=== PATIENT | female | born 1950 | race African-American/Black ===

== ENCOUNTER 2018-07-09 11:25 | Emergency (ER) | payer MEDICARE, OTHER ==
[~2018-07-09] VITALS: Ht 152.4 cm; Wt 64.4 kg
[~2018-07-09 11:25] MED LIST: NAPR500T8 PO; TRAM-48 PO
[2018-07-09 11:42] VITALS: BP 127/60
--- NOTE | 2018-07-09 12:41 | RAD ---
EXAM: Left index, 3 views; left knee, 3 views. HISTORY: Pain. Fall. COMPARISON: 10/17/2015 FINDINGS: Left index finger: 3 views left index 0 obtained. No displaced fracture is seen. There is no radiodense foreign body. There is widening of the scapholunate joint space likely due to ligamentous injury. There is a prominent degenerative subchondral cyst within the distal radial metaphysis. Left knee: 3 views left knee are obtained. There is severe irregularity of the lateral compartment articular surface with near complete loss of the joint space, bony remodeling with depression of the lateral tibial plateau, sclerosis and subchondral cyst formation and surrounding bone fragments. There is associated genu valgus. There is mild to moderate medial compartment and mild patellofemoral compartment spurring. There is enthesopathy along the superior patella. There is a moderate to large joint effusion. There is callus formation surrounding a minimally displaced proximal fibular diaphyseal fracture. IMPRESSION: 1. No acute osseous finding. 2. Severe left knee lateral compartment joint space narrowing with irregular area of the articular surface, depression of the lateral tibial plateau, sclerosis, subchondral cyst formation and surrounding bone fragments. This is greater than expected for a degenerative etiology. The possibility of degenerative change superimposed on a chronic fracture or underlying chronic infection is not excluded. This is new compared to the study dated 10/17/2015. 3. Callus formation surrounding a healing proximal left fibular diaphyseal fracture. 4. Scapholunate joint space widening due to ligamentous injury. There is also degenerative change involving the distal radial metaphysis. Electronically signed by: Daniella Peña MD (07/09/2018 12:36 PM) [facility]
[2018-07-09] MEDS ORDERED: METH4TAB2 PO (13:40)
[2018-07-09] MEDS ORDERED: DICL100G18 TP (13:40)
[2018-07-09] MEDS ORDERED: HYDR-3164 PO (13:40)
--- NOTE | 2018-07-09 13:41 | PHYS DOC ---
Past Medical History Past Medical History: Arthritis, COPD, Hypertension Past Surgical History: Tubal ligation Additional Past Surgical Histo: RIGHT BREAST SX, CATARACTS SX Additional Information: 1 CIG/DAY Alcohol Use: None Drug Use: None Adult General Chief Complaint Chief Complaint: MECHANICAL FALL [facility] HPI Patient is a 68 year old female with history of hypertension, arthritis, COPD, who presents today complaining of 10 out of 10 left index finger and left knee pain that began 2 weeks ago after she fell. Patient states she was trying to put something in the trash when she lost her balance and fell landing on her left knee. Patient denies any loss of consciousness, denies hitting her head on the ground. Patient is in the ED with the family member who states patient is currently not able to ambulate and put weight on the left lower extremity. Review of Systems Review of Systems Constitutional: Denies fever or chills [] Eyes: Denies change in visual acuity, redness, or eye pain [] HENT: Denies nasal congestion or sore throat [] Respiratory: Denies cough or shortness of breath [] Cardiovascular: No additional information not addressed in HPI [] GI: Denies abdominal pain, nausea, vomiting, bloody stools or diarrhea [] : Denies dysuria or hematuria [] Musculoskeletal: Reports left index finger pain and left knee pain Integument: Denies rash or skin lesions [] Neurologic: Denies headache, focal weakness or sensory changes [] All other systems were reviewed and found to be within normal limits, except as documented in this note. Allergies Allergies Allergies Coded Allergies Type Severity Reaction Last Updated Verified No Known Drug Allergies 10/17/15 No Physical Exam Physical Exam Constitutional: Well developed, well nourished, no acute distress, non-toxic appearance. [] HENT: Normocephalic, atraumatic, bilateral external ears normal, oropharynx moist, no oral exudates, nose normal. [] Eyes: PERRLA, EOMI, conjunctiva normal, no discharge. [] Neck: Normal range of motion, no tenderness, supple, no stridor. [] Cardiovascular:Heart rate regular rhythm, no murmur [] Lungs & Thorax: Bilateral breath sounds clear to auscultation [] Abdomen: Bowel sounds normal, soft, no tenderness, no masses, no pulsatile masses. [] Skin: Warm, dry, no erythema, no rash. [] Back: No tenderness, no CVA tenderness. [] Extremities: Left index finger with no obvious deformity. Full range of motion to the left index finger, adequate radius sensation to the left index finger. + 2 left radial pulse. Left knee with mild to moderate swelling. Tenderness diffusely throughout the knee. Limited range of motion to the knee due to pain. +2 left pedal pulse. Cap refill less than 2 seconds the left lower extremity. Neurologic: Alert and oriented X 3, normal motor function, normal sensory function, no focal deficits noted. [] Psychologic: Affect normal, judgement normal, mood normal. [] Current Patient Data Vital Signs Vital Signs Date Time Temp Pulse Resp B/P (MAP) Pulse Ox O2 Delivery O2 Flow Rate FiO2 07/09/18 11:42 97.8 74 18 127/60 (82) 98 Room Air 97.8 EKG EKG [] Radiology/Procedures Radiology/Procedures []PROCEDURE: FINGER(S) LEFT EXAM: Left index, 3 views; left knee, 3 views. HISTORY: Pain. Fall. COMPARISON: 10/17/2015 FINDINGS: Left index finger: 3 views left index 0 obtained. No displaced fracture is seen. There is no radiodense foreign body. There is widening of the scapholunate joint space likely due to ligamentous injury. There is a prominent degenerative subchondral cyst within the distal radial metaphysis. Left knee: 3 views left knee are obtained. There is severe irregularity of the lateral compartment articular surface with near complete loss of the joint space, bony remodeling with depression of the lateral tibial plateau, sclerosis and subchondral cyst formation and surrounding bone fragments. There is associated genu valgus. There is mild to moderate medial compartment and mild patellofemoral compartment spurring. There is enthesopathy along the superior patella. There is a moderate to large joint effusion. There is callus formation surrounding a minimally displaced proximal fibular diaphyseal fracture. IMPRESSION: 1. No acute osseous finding. 2. Severe left knee lateral compartment joint space narrowing with irregular area of the articular surface, depression of the lateral tibial plateau, sclerosis, subchondral cyst formation and surrounding bone fragments. This is greater than expected for a degenerative etiology. The possibility of degenerative change superimposed on a chronic fracture or underlying chronic infection is not excluded. This is new compared to the study dated 10/17/2015. 3. Callus formation surrounding a healing proximal left fibular diaphyseal fracture. 4. Scapholunate joint space widening due to ligamentous injury. There is also degenerative change involving the distal radial metaphysis. Electronically signed by: Lia Peña MD (07/09/2018 12:36 PM) [facility] DICTATED and SIGNED BY: LIA PEÑA MD DATE: 07/09/18 1231 Course & Med Decision Making Course & Med Decision Making Pertinent Labs and Imaging studies reviewed. (See chart for details) This is a 68-year-old female patient presenting to the ED today with left index finger pain and left knee pain that began 2 weeks ago after she fell. No loss of consciousness. Results of the left knee x-rays and left index finger 1. No acute osseous finding. 2. Severe left knee lateral compartment joint space narrowing with irregular area of the articular surface, depression of the lateral tibial plateau, sclerosis, subchondral cyst formation and surrounding bone fragments. This is greater than expected for a degenerative etiology. The possibility of degenerative change superimposed on a chronic fracture or underlying chronic infection is not excluded. This is new compared to the study dated 10/17/2015. 3. Callus formation surrounding a healing proximal left fibular diaphyseal fracture. 4. Scapholunate joint space widening due to ligamentous injury. There is also degenerative change involving the distal radial metaphysis. Finger splint provided in the ED. Splint applied by the ED RN, pre-and post neurovascular exam is intact after splint application. Spoke to patient and family member. Offered this patient admission considering her injuries as well as inability to bear weight on the left lower extremity. Patient resides at home alone. She states she has a caregiver who comes for 1 hour every day. Patient decided to sign out AMA. She states she cannot be admitted. I provided the an orthopedic doctor for follow-up as an outpatient. Abdias bandage applied to the left knee by the ED RN, pre-application and post- application neurovascular exam is intact. Given prescription for Voltaren, Medrol Dosepak and 10 tablets of [place]. Vitals in the ED temperature 97.8 heart rate 74 blood pressure 127/60 respiration 18 room air, O2 sats 98%. Physical exam of the left knee there is no redness, there swelling Dragon Disclaimer Dragon Disclaimer This electronic medical record was generated, in whole or in part, using a voice recognition dictation system. Departure Departure Impression: Primary Impression: Knee effusion Additional Impressions: Knee pain Sprain of index finger Fall from standing Left fibular fracture Disposition: 01 HOME, SELF-CARE Condition: STABLE Referrals: UNKNOWN PCP NAME (PCP) SHANNAN CEJA II, MD follow up in 1 day Patient Instructions: Finger Sprain, [id number], Knee Pain, [id number] Additional Instructions: You were evaluated in the emergency room for left index finger pain and left knee pain after an injury. We highly recommend you follow-up with the orthopedic doctor provided as soon as possible. Your Scripts Methylprednisolone (MEDROL) 4 Mg Tab.ds.pk 1 PKG PO UD, #1 PKG Prov: LIBORIO TIWARI PROFILE MILL OPERATOR T[employer] CONTR[employer] 07/09/18 Hydrocodone/Apap 5-325 (NORCO 5-325 TABLET) 1 Each Tablet 1 TAB PO Q8HRS PRN for PAIN, #10 TAB Prov: LIBORIO TIWARI PROFILE MILL OPERATOR T[employer] 07/09/18 Diclofenac Sodium (VOLTAREN) 100 Gm Gel..gram. 1 GM TP QID, #100 GM 2 Refills Prov: LIBORIO TIWARI PROFILE MILL OPERATOR T[employer] 07/09/18 Problem Qualifiers Primary Impression: Knee effusion Laterality: left Qualified Codes: M25.462 - Effusion, left knee Additional Impressions: Knee pain Chronicity: acute Laterality: left Qualified Codes: M25.562 - Pain in left knee Sprain of index finger Encounter type: initial encounter Sprain of finger site: interphalangeal joint Laterality: left Qualified Codes: S63.631A - Sprain of interphalangeal joint of left index finger, initial encounter Fall from standing Encounter type: initial encounter Qualified Codes: W19.XXXA - Unspecified fall, initial encounter Left fibular fracture Encounter type: initial encounter Fibula location: shaft Fracture type: closed Fracture morphology: other fracture Qualified Codes: S82.492A - Other fracture of shaft of left fibula, initial encounter for closed fracture LIBORIO TIWARI PROFILE M[employer] OPERATOR [employer] Jul 09, 2018 13:41
== END 2018-07-09 14:04 | disposition home or self-care (01) ==
LOC: ER 11:25
DX: S82.492A Other fracture of shaft of left fibula, initial encounter for closed fracture (principal); S63.631A Sprain of interphalangeal joint of left index finger, initial encounter; M25.462 Effusion, left knee; I10 Essential (primary) hypertension; J44.9 Chronic obstructive pulmonary disease, unspecified; Z98.51 Tubal ligation status; F17.210 Nicotine dependence, cigarettes, uncomplicated; W18.39XA Other fall on same level, initial encounter; Y93.89 Activity, other specified; Y92.89 Other specified places as the place of occurrence of the external cause; Y99.8 Other external cause status
CPT/HCPCS: 29130; 73140; 73562; 99284-25

== ENCOUNTER 2018-08-25 17:23 | Inpatient (IN) | payer MEDICARE, OTHER ==
[~2018-08-25] VITALS: Ht 149.9 cm; Wt 63.6 kg
[~2018-08-25 17:23] MED LIST changes: +DICL100G18 TP; +HYDR-3164 PO; +METH4TAB2 PO
[2018-08-25] MEDS ORDERED: IV NORMAL SALINE 1000ML BAG 1,000 ML IV ONE ×3 (18:00→23:30)
--- NOTE | 2018-08-25 18:19 | PHYS DOC ---
Past Medical History Past Medical History: Arthritis, COPD, Diabetes-Type II, Hypertension Past Surgical History: Tubal ligation Additional Past Surgical Histo: RIGHT BREAST SX, CATARACTS SX Alcohol Use: None Drug Use: Opiates Adult General Chief Complaint Chief Complaint: KNEE SWELLING HPI HPI 68-year-old female presents to ER via EMS from her residence after her field human resources manager had concerns with patient's mental status. On arrival patient has moments of clarity and then her words become slurred. Patient has bottles of hydrocodone which EMS reported she takes for chronic pain which were filled at the end of July and she has less pills left then what she should if she was taking as prescribed. Patient has pinpoint pupils. Patient is maintaining her airway and only complaint she has has left knee pain. EMS reported patient had fallen however patient has no recollection of falls. During exam pt will be talking and then drifts into sleep- she wakes easily to voice command and will provide answers to some questions. At times she is confused with responses. She denies head/neck/back pain. She denies CP or feeling SOA. Review of Systems Review of Systems With pt's current medical condition and level of consciousness difficult to obtain ROS- she does arouse to voice command but at times during exam providing inapprop. responses to questions. Uncertain of accuracy of info pt is providing. All other systems were reviewed and found to be within normal limits, except as documented in this note. Current Medications Current Medications Current Medications Medications (Trade) Dose Ordered Sig/Yuridia Start Time Stop Time Status Last Admin Dose Admin Sodium Chloride 1,000 ml @ 1,000 mls/hr 1X ONCE 08/25/18 18:00 08/25/18 18:59 DC 08/25/18 18:44 1,000 MLS/HR Allergies Allergies Allergies Coded Allergies Type Severity Reaction Last Updated Verified No Known Drug Allergies 10/17/15 No Physical Exam Physical Exam Constitutional: Well developed, well nourished, no acute distress, non-toxic appearance. Drowsy during exam and would doze off during discussion- she would wake easily to voice command HENT: Normocephalic, atraumatic, bilateral ears normal, mucous membranes pale/ dry, no oral exudates/injuries, nose normal. [] Eyes: 1mm PERRLA- sluggish, no nystagmus, conjunctiva normal, no discharge. [] Neck: Normal range of motion, no tenderness- no palp. deformity, supple, no stridor. Trachea midline Cardiovascular: Tachycardic heart rate regular rhythm, no murmur [] Lungs & Thorax: Bilateral breath sounds clear to auscultation- diminished in bases. Resp. equal/nonlabored at times during exam resp. slowed- O2 was applied via NC and during exam pt maintained O2 sat of 97-99% on 2L Abdomen: Bowel sounds normal, soft, no tenderness, no masses, no pulsatile masses. [] Skin: Warm, dry, no erythema, no rash. [] Back: No tenderness-no palp. deformity midline spine. No visible injury on back. Pt is able to reposition self on cart, no CVA tenderness. [] Extremities: Pelvis stable/nontender. No tenderness in lateral bilat. hips. Tender on palp. lt anterior knee w/swelling and deformity on exam- no ecchymosis /wounds. Decreased ROM of lt knee. 2+ bilat. dorsalis pedis/posterior tibial. No cyanosis, no clubbing, Neurologic: Alert and oriented X 2, normal motor function- slow purposeful movements on command, normal sensory function, no focal deficits noted. Speech is clear at times and then when pt is dozing off she does have slurred incomprehensible speech. Psychologic: No restlessness or agitation. Current Patient Data Vital Signs Vital Signs Date Time Temp Pulse Resp B/P (MAP) Pulse Ox O2 Delivery O2 Flow Rate FiO2 08/25/18 17:31 98.3 124 20 138/76 (96) 96 Room Air 98.3 Lab Values Laboratory Tests Test 08/25/18 17:31 Glucose (Fingerstick) 92 mg/dL (70-99) EKG EKG EKG obtained 08/25/18 at 1734 Interpreted by ER physician SVT Rate 129 No STEMI Radiology/Procedures Radiology/Procedures PROCEDURE: CT HEAD AND CERVICAL SPINE WO CT HEAD AND CERVICAL SPINE WO Clinical indications: FALL, HEAD AND NECK INJURY, PRIOR CT HEAD SENT NONCONTRAST HEAD CT COMPARISON: November 22, 2007. Technique: Noncontrast axial cross sectional scanning of the head was performed. PQRS compliance Statement One or more of the following individualized dose reduction techniques were utilized for this study: 1. Automated exposure control 2. Adjustment of the mA and/or kV according to patient size 3. Use of iterative reconstruction technique Findings: No acute intracranial hemorrhage or midline shift or mass-effect or hydrocephalus or extra-axial fluid collection is seen. Bilateral periventricular chronic small vessel ischemic disease is evident along with lacunar infarcts of the basal ganglia bilaterally. No skull fracture or pneumocephalus is seen. No opacification of the mastoid sinuses or the paranasal sinuses is seen. The maxillary sinuses are not completely seen in this study. Impression: No acute intracranial abnormality is seen. CERVICAL SPINE CT WITHOUT CONTRAST TECHNIQUE: Noncontrast helical CT scanning of the cervical spine was performed. Multiplanar 2-D reconstructions were generated. FINDINGS: No acute fracture or discitis or lytic process is evident. No perching of facet joints is seen. The odontoid process is intact. IMPRESSION: No acute fracture. Electronically signed by: Beck Rodriguez MD (08/25/2018 7:23 PM) [facility] DICTATED and SIGNED BY: BECK RODRIGUEZ MD DATE: 08/25/18 1923 PROCEDURE: HIP LEFT 2V WITH PELVIS Pelvis with left hip, 3 views, 08/25/2018: HISTORY: Fall, hip pain No fracture or dislocation is identified. The hip joint spaces are fairly well preserved with only minimal marginal spurring. Aortoiliac and femoral arterial calcifications are present. IMPRESSION: No acute bony abnormality is detected. Electronically signed by: Matias Cevallos MD (08/26/2018 7:48 AM) [facility] DICTATED and SIGNED BY: MATIAS CEVALLOS MD DATE: 08/26/18 0748 PROCEDURE: KNEE LEFT 3V Indication:ER PATIENT.TRAUMA FALL PAIN IN THE LEFT KNEE. NO PRIORS TECHNIQUE: 3 views of the left knee COMPARISON:08/05/2018 FINDINGS: Severe tricompartmental osteoarthritis. Small suprapatellar effusion. Subacute fracture of the proximal diaphysis of the fibula with evidence of bridging callus formation. No new acute fracture or dislocation. IMPRESSION: As above. Electronically signed by: Fransico Gaspar DO (08/25/2018 11:58 PM) [facility] DICTATED and SIGNED BY: FRANSICO GASPAR DO DATE: 08/25/18 2734 Course & Med Decision Making Course & Med Decision Making Pertinent Labs and Imaging studies reviewed. (See chart for details) Patient was brought to the ER for decreased LOC and difficulty breathing. On arrival to the ER patient was lethargic-she would arouse to verbal command and at times was answering questions appropriately. It was uncertain to exactly events leading up to transport to ER. With patient's level of consciousness during exam head and C-spine CT was ordered as EMS had reported possible fall with patient having complaints of left lower extremity pain. Head and C-spine CT were negative for acute findings of fractures. With possible fall pelvis and left hip and knee imaging was done as with any palpation of left knee or movement of left lower extremity patient would moan stating she was having pain- chronic findings noted on those images. Lt knee xray report of "Subacute fracture of the proximal diaphysis of the fibula with evidence of bridging callus formation. No new acute fracture or dislocation". She remained PMS intact in all extremities while in the ER. As results of tests were being resulted family members arrived to bedside- patient's nieces arrived and was able to provide further insight into patient's case. They report patient had previous left leg fractures which she had been seeing orthopedics for- they report pt's pain meds had been being handled by care takers without pt having full access to them. However in recent weeks that had changed and care takers had started leaving pain meds with pt. Pt's niece reports pt has a "mental" issue and feels maybe pt hasn't been remembering if she took her meds or possibly that with ongoing pain she has been taking meds not as Rx'd. With patient's ongoing complaints of pain with any palpation of left knee or movement of left lower extremity will have knee immobilizer placed to support. Patient had EKG with no acute ST elevation or STEMI and troponin was <0.017- UA was negative for infection did have trace ketones. Patient's renal functions were elevated with be with Cr at 1.9- patient's CK total was 858. Patient did receive IV fluid bolus while in the ER. Patient's decreased just numbness and ongoing complaints of pain discussed admission with patient's niece and they are agreeable with this plan. Will have orthopedics evaluate patient while she is inpatient. Will admit to hospitalist services for further care and monitoring. Dr. Burrows, hospitalist was in ER- discussed pt's case and admit plan with him. Osman Disclaimer Osman Disclaimer This electronic medical record was generated, in whole or in part, using a voice recognition dictation system. Departure Departure Impression: Primary Impression: Left knee pain Additional Impression: Decreased level of consciousness Disposition: ADMITTED INPATIENT Admitting Physician: Poli Guzmán Condition: STABLE Referrals: UNKNOWN PCP NAME (PCP) Scripts Acetaminophen (TYLENOL) 325 Mg Tablet 650 MG PO PRN Q6HRS PRN for MILD PAIN for 14 Days, #60 TAB Prov: POLI BURROWS MD 08/28/18 Problem Qualifiers DANIELLE DIXON APRN Aug 25, 2018 18:19
[2018-08-25 18:49] LABS: BASO # 0.1 x10^3/uL (0.0-0.2); BASO % 1 % (0-3); EOS # 0.2 x10^3/uL (0.0-0.7); EOS % 4 % (0-3); HEMATOCRIT 34.6 % (36.0-47.0); HEMOGLOBIN 11.1 g/dL (12.0-15.5); LYMPH # 1.1 x10^3/uL (1.0-4.8); LYMPH % 17 % (24-48); MEAN CORPUSCULAR HEMOGLOBIN 27 pg (25-35); MEAN CORPUSCULAR HGB CONC 32 g/dL (31-37); MEAN CORPUSCULAR VOLUME 84 fL (79-100); MONO # 0.6 x10^3/uL (0.0-1.1); MONO % 9 % (0-9); NEUT # 4.5 x10^3uL (1.8-7.7); NEUT % 69 % (31-73); PLATELET COUNT 308 x10^3/uL (140-400); RED BLOOD COUNT 4.11 x10^6/uL (3.50-5.40); RED CELL DISTRIBUTION WIDTH 15.1 % (11.5-14.5); WHITE BLOOD COUNT 6.5 x10^3/uL (4.0-11.0)
[2018-08-25 19:02] LABS: CALCIUM 9.4 mg/dL (8.5-10.1); CREATININE 1.9 mg/dL (0.6-1.0); GFR 31.7; POTASSIUM 4.1 mmol/L (3.5-5.1)
[2018-08-25 19:11] LABS: ALBUMIN 3.4 g/dL (3.4-5.0); ALBUMIN/GLOBULIN RATIO 0.7 (1.0-1.7); MAGNESIUM 1.5 mg/dL (1.8-2.4); TOTAL BILIRUBIN 0.4 mg/dL (0.2-1.0); TOTAL PROTEIN 8.2 g/dL (6.4-8.2)
--- NOTE | 2018-08-25 19:22 | PDOC1 ---
History and Physical Date of Admission Date of Admission DATE: 08/25/18 TIME: 19:22 Identification/Chief Complaint Chief Complaint EMS from her residence after her sample body builder had concerns with patient's mental status. On arrival patient has moments of clarity and then her words become slurred. Patient has bottles of hydrocodone which EMS reported she takes for chronic pain which were filled at the end of July and she has less pills left then what she should if she was taking as prescribed. Patient has pinpoint pupils. Patient is maintaining her airway Past Medical History Past Medical History Past Medical History: Arthritis, COPD, Diabetes-Type II, Hypertension Past Surgical History: Tubal ligation Additional Past Surgical Histo: RIGHT BREAST SX, CATARACTS SX Alcohol Use: None Drug Use: Opiates FAMILY HX HTN Current Medications Current Medications Current Medications Sodium Chloride 1,000 ml @ 1,000 mls/hr 1X ONCE IV Last administered on at 18:44; Start 08/25/18 at 18:00; Stop 08/25/18 at 18:59; Status DC Active Scripts Active Medrol (Methylprednisolone) 4 Mg Tab.ds.pk 1 Pkg PO UD [place] 5-325 Tablet (Acetaminophen/Hydrocodone Bitart) 1 Each Tablet 1 Tab PO Q8HRS PRN Voltaren (Diclofenac Sodium) 100 Gm Gel..gram. 1 Gm TP QID Ultram (Tramadol Hcl) 50 Mg Tablet 50 Mg PO Q6H PRN Naproxen 500 Mg Tablet.dr 500 Mg PO BID Allergies Allergies: Coded Allergies: No Known Drug Allergies (Unverified , 10/17/15) ROS Review of System Review of Systems Review of Systems Constitutional: Denies fever or chills [] Eyes: Denies change in visual acuity, redness, or eye pain [] HENT: Denies nasal congestion or sore throat [] Respiratory: Denies cough or shortness of breath [] Cardiovascular: No additional information not addressed in HPI [] GI: Denies abdominal pain, nausea, vomiting, bloody stools or diarrhea [] : Denies dysuria or hematuria [] Musculoskeletal: left knee // joint pain [] Integument: Denies rash or skin lesions [] Neurologic: Denies headache, focal weakness or sensory changes [] Endocrine: Denies polyuria or polydipsia [] All other systems were reviewed and found to be within normal limits, except as documented in this note. Physical Exam Physical Exam Physical Exam Physical Exam Constitutional: Well developed, well nourished, mod acute distress, non-toxic , somnolent. [] HENT: Normocephalic, atraumatic, bilateral external ears normal, oropharynx moist, no oral exudates, nose normal. [] Eyes: PERRLA, EOMI, conjunctiva normal, no discharge. [] Neck: Normal range of motion, no tenderness, supple, no stridor. [] Cardiovascular:Heart rate regular rhythm, no murmur [] Lungs & Thorax: Bilateral breath sounds clear to auscultation [] Abdomen: Bowel sounds normal, soft, no tenderness, no masses, no pulsatile masses. [] Skin: Warm, dry, no erythema, no rash. [] Back: No tenderness, no CVA tenderness. [] Extremities: No tenderness, no cyanosis, no clubbing, ROM intact, no edema. [] Neurologic: oriented X 3, , left knee dec ROMnormal sensory function, no focal deficits noted. [] Psychologic: Affect normal, judgement POOR mood FLAT [] Breasts: Not examined Abdomen: Soft Rectal Exam: not examined PELVIC: Examination not indicated Extremities: No cyanosis Neuro: Cranial nerves 3-12 NL Vitals Vitals Vital Signs Date Time Temp Pulse Resp B/P (MAP) Pulse Ox O2 Delivery O2 Flow Rate FiO2 08/25/18 18:43 118 20 119/87 (98) 97 Nasal Cannula 2.0 08/25/18 17:31 98.3 98.3 Labs Labs Laboratory Tests Test 08/25/18 17:31 08/25/18 18:37 Glucose (Fingerstick) 92 mg/dL (70-99) White Blood Count 6.5 x10^3/uL (4.0-11.0) Red Blood Count 4.11 x10^6/uL (3.50-5.40) Hemoglobin 11.1 g/dL (12.0-15.5) Hematocrit 34.6 % (36.0-47.0) Mean Corpuscular Volume 84 fL (79-100) Mean Corpuscular Hemoglobin 27 pg (25-35) Mean Corpuscular Hemoglobin Concent 32 g/dL (31-37) Red Cell Distribution Width 15.1 % (11.5-14.5) Platelet Count 308 x10^3/uL (140-400) Neutrophils (%) (Auto) 69 % (31-73) Lymphocytes (%) (Auto) 17 % (24-48) Monocytes (%) (Auto) 9 % (0-9) Eosinophils (%) (Auto) 4 % (0-3) Basophils (%) (Auto) 1 % (0-3) Neutrophils # (Auto) 4.5 x10^3uL (1.8-7.7) Lymphocytes # (Auto) 1.1 x10^3/uL (1.0-4.8) Monocytes # (Auto) 0.6 x10^3/uL (0.0-1.1) Eosinophils # (Auto) 0.2 x10^3/uL (0.0-0.7) Basophils # (Auto) 0.1 x10^3/uL (0.0-0.2) Sodium Level 138 mmol/L (136-145) Potassium Level 4.1 mmol/L (3.5-5.1) Chloride Level 100 mmol/L (98-107) Carbon Dioxide Level 24 mmol/L (21-32) Anion Gap 14 (6-14) Blood Urea Nitrogen 30 mg/dL (7-20) Creatinine 1.9 mg/dL (0.6-1.0) Estimated GFR (Cockcroft-Gault) 31.7 BUN/Creatinine Ratio 16 (6-20) Glucose Level 105 mg/dL (70-99) Lactic Acid Level 1.0 mmol/L (0.4-2.0) Calcium Level 9.4 mg/dL (8.5-10.1) Magnesium Level 1.5 mg/dL (1.8-2.4) Total Bilirubin 0.4 mg/dL (0.2-1.0) Aspartate Amino Transf (AST/SGOT) 41 U/L (15-37) Alanine Aminotransferase (ALT/SGPT) 19 U/L (14-59) Alkaline Phosphatase 112 U/L (46-116) Creatine Kinase 858 U/L (26-192) Creatine Kinase MB (Mass) 3.8 ng/mL (0.0-3.6) Creatine Kinase MB Relative Index 0.4 % (0-4) Troponin I Quantitative < 0.017 ng/mL (0.000-0.055) Total Protein 8.2 g/dL (6.4-8.2) Albumin 3.4 g/dL (3.4-5.0) Albumin/Globulin Ratio 0.7 (1.0-1.7) Ethyl Alcohol Level < 10 mg/dL (0-10) Laboratory Tests Test 08/25/18 17:31 08/25/18 18:37 Glucose (Fingerstick) 92 mg/dL (70-99) White Blood Count 6.5 x10^3/uL (4.0-11.0) Red Blood Count 4.11 x10^6/uL (3.50-5.40) Hemoglobin 11.1 g/dL (12.0-15.5) Hematocrit 34.6 % (36.0-47.0) Mean Corpuscular Volume 84 fL (79-100) Mean Corpuscular Hemoglobin 27 pg (25-35) Mean Corpuscular Hemoglobin Concent 32 g/dL (31-37) Red Cell Distribution Width 15.1 % (11.5-14.5) Platelet Count 308 x10^3/uL (140-400) Neutrophils (%) (Auto) 69 % (31-73) Lymphocytes (%) (Auto) 17 % (24-48) Monocytes (%) (Auto) 9 % (0-9) Eosinophils (%) (Auto) 4 % (0-3) Basophils (%) (Auto) 1 % (0-3) Neutrophils # (Auto) 4.5 x10^3uL (1.8-7.7) Lymphocytes # (Auto) 1.1 x10^3/uL (1.0-4.8) Monocytes # (Auto) 0.6 x10^3/uL (0.0-1.1) Eosinophils # (Auto) 0.2 x10^3/uL (0.0-0.7) Basophils # (Auto) 0.1 x10^3/uL (0.0-0.2) Sodium Level 138 mmol/L (136-145) Potassium Level 4.1 mmol/L (3.5-5.1) Chloride Level 100 mmol/L (98-107) Carbon Dioxide Level 24 mmol/L (21-32) Anion Gap 14 (6-14) Blood Urea Nitrogen 30 mg/dL (7-20) Creatinine 1.9 mg/dL (0.6-1.0) Estimated GFR (Cockcroft-Gault) 31.7 BUN/Creatinine Ratio 16 (6-20) Glucose Level 105 mg/dL (70-99) Lactic Acid Level 1.0 mmol/L (0.4-2.0) Calcium Level 9.4 mg/dL (8.5-10.1) Magnesium Level 1.5 mg/dL (1.8-2.4) Total Bilirubin 0.4 mg/dL (0.2-1.0) Aspartate Amino Transf (AST/SGOT) 41 U/L (15-37) Alanine Aminotransferase (ALT/SGPT) 19 U/L (14-59) Alkaline Phosphatase 112 U/L (46-116) Creatine Kinase 858 U/L (26-192) Creatine Kinase MB (Mass) 3.8 ng/mL (0.0-3.6) Creatine Kinase MB Relative Index 0.4 % (0-4) Troponin I Quantitative < 0.017 ng/mL (0.000-0.055) Total Protein 8.2 g/dL (6.4-8.2) Albumin 3.4 g/dL (3.4-5.0) Albumin/Globulin Ratio 0.7 (1.0-1.7) Ethyl Alcohol Level < 10 mg/dL (0-10) Images Images Pelvis with left hip, 3 views, 08/25/2018: HISTORY: Fall, hip pain No fracture or dislocation is identified. The hip joint spaces are fairly well preserved with only minimal marginal spurring. Aortoiliac and femoral arterial calcifications are present. IMPRESSION: No acute bony abnormality is detected. Electronically signed by: Matias Cevallos MD (08/26/2018 7:48 AM) [facility] DICTATED and SIGNED BY: MATIAS CEVALLOS MD DATE: 08/26/18 0748 PROCEDURE: TIBIA FIBULA LEFT Indication: Trauma TECHNIQUE: AP and lateral views of the left tibia and fibula COMPARISON: None FINDINGS/ impression: Old healing fracture is seen of the proximal diaphysis of the fibula. No other acute fracture or dislocation. Advanced tricompartmental osteoarthritis of the knee joint. Small suprapatellar effusion. Electronically signed by: Fransico Gaspar DO (08/26/2018 5:41 AM) [facility] DICTATED and SIGNED BY: FRANSICO GASPAR DO DATE: 08/26/[address] HEAD AND CERVICAL SPINE WO Clinical indications: FALL, HEAD AND NECK INJURY, PRIOR CT HEAD SENT NONCONTRAST HEAD CT COMPARISON: November 22, 2007. Technique: Noncontrast axial cross sectional scanning of the head was performed. PQRS compliance Statement One or more of the following individualized dose reduction techniques were utilized for this study: 1. Automated exposure control 2. Adjustment of the mA and/or kV according to patient size 3. Use of iterative reconstruction technique Findings: No acute intracranial hemorrhage or midline shift or mass-effect or hydrocephalus or extra-axial fluid collection is seen. Bilateral periventricular chronic small vessel ischemic disease is evident along with lacunar infarcts of the basal ganglia bilaterally. No skull fracture or pneumocephalus is seen. No opacification of the mastoid sinuses or the paranasal sinuses is seen. The maxillary sinuses are not completely seen in this study. Impression: No acute intracranial abnormality is seen. CERVICAL SPINE CT WITHOUT CONTRAST TECHNIQUE: Noncontrast helical CT scanning of the cervical spine was performed. Multiplanar 2-D reconstructions were generated. FINDINGS: No acute fracture or discitis or lytic process is evident. No perching of facet joints is seen. The odontoid process is intact. IMPRESSION: No acute fracture. Electronically signed by: Beck Rodriguez MD (08/25/2018 7:23 PM) [facility] VTE Prophylaxis Ordered VTE Prophylaxis Devices: Yes VTE Pharmacological Prophylaxi: Yes Assessment/Plan Assessment/Plan IMPRESSION 1. POSSIBLE ACCIDENTAL NARCOTIC OVERDOSE/ TRAMADOL/ HYDROCODONE 2. LEFT KNEE PAIN //Old healing fracture is seen of the proximal diaphysis of the fibula 3. ALTERED MENTATION 4. DEHYDRATION 5. COPD 6. OSTEOARTHRITIS///Left knee osteoarthritis. 7. ARF/ VASOMOTOR NEPHROPATHY 8. LEFT HIP PAIN 9. FALLS PLAN TELE NEUROCHECKS Q 4 HRS IV FLUID SUPPORT FOLLOW RENAL FX GLUCOSE MGT NEUROLOGY CONSULT FALL PRECAUTIONS HIGH RISK PT AT RISK FOR SUDDEN DUE TO NARCOTIC USE// RECSTOPPING ALL NARCOTICS PER MY CHART REVIEW 33 MIN CC TIME Past Medical History Past Medical History: Arthritis, COPD, Diabetes-Type II, Hypertension Past Surgical History: Tubal ligation Additional Past Surgical Histo: RIGHT BREAST SX, CATARACTS SX Alcohol Use: None Drug Use: Opiates JAYSHREE BURROWS MD Aug 25, 2018 19:22
--- NOTE | 2018-08-25 19:25 | RAD ---
CT HEAD AND CERVICAL SPINE WO Clinical indications: FALL, HEAD AND NECK INJURY, PRIOR CT HEAD SENT NONCONTRAST HEAD CT COMPARISON: November 22, 2007. Technique: Noncontrast axial cross sectional scanning of the head was performed. PQRS compliance Statement One or more of the following individualized dose reduction techniques were utilized for this study: 1. Automated exposure control 2. Adjustment of the mA and/or kV according to patient size 3. Use of iterative reconstruction technique Findings: No acute intracranial hemorrhage or midline shift or mass-effect or hydrocephalus or extra-axial fluid collection is seen. Bilateral periventricular chronic small vessel ischemic disease is evident along with lacunar infarcts of the basal ganglia bilaterally. No skull fracture or pneumocephalus is seen. No opacification of the mastoid sinuses or the paranasal sinuses is seen. The maxillary sinuses are not completely seen in this study. Impression: No acute intracranial abnormality is seen. CERVICAL SPINE CT WITHOUT CONTRAST TECHNIQUE: Noncontrast helical CT scanning of the cervical spine was performed. Multiplanar 2-D reconstructions were generated. FINDINGS: No acute fracture or discitis or lytic process is evident. No perching of facet joints is seen. The odontoid process is intact. IMPRESSION: No acute fracture. Electronically signed by: Beck Rodriguez MD (08/25/2018 7:23 PM) [facility]
[2018-08-25 19:29] LABS: BILIRUBIN,URINE MODERATE (NEG); CLARITY,URINE CLEAR; COLOR,URINE YELLOW; NITRITE,URINE NEGATIVE (NEG); PROTEIN,URINE 30 mg/dL (NEG-TRACE); UROBILINOGEN,URINE 0.2 mg/dL (0.2 mg/dL)
[2018-08-25 19:34] LABS: BARBITURATES NEG (NEG); BENZODIAZEPINES NEG (NEG); CANNABINOIDS NEG (NEG); COCAINE NEG (NEG); METHADONE NEG (NEG); OPIATES POS (NEG); PHENCYCLIDINE NEG (NEG)
[2018-08-25 19:35] LABS: AMPHETAMINE/METHAMPHETAMINE NEG (NEG)
[2018-08-25 19:37] LABS: BACTERIA,URINE 0 /HPF (0-FEW); RBC,URINE RARE /HPF (0-2); SQUAMOUS EPITHELIAL CELL,UR FEW /LPF; WBC,URINE RARE /HPF (0-4)
[2018-08-25 19:38] LABS: HYALINE CASTS, URINE MODERATE /HPF
[2018-08-25 20:30] VITALS: BP 158/75
[2018-08-25 22:17] VITALS: BP 150/84
[2018-08-25] MEDS ORDERED: MAGNESIUM SULFATE 2GM 50 ML IV ONE (23:30)
--- NOTE | 2018-08-26 | RAD ---
Indication:ER PATIENT. DYSPHAGIA, PRIOR XRAY. HX HTN, COPD, DIABETES TECHNIQUE:Portable AP chest X-ray COMPARISON:None FINDINGS: Heart is normal in size. Aortic knob calcifications suggesting systemic artery hypertension. Lungs are hyperinflated without focal consolidation. No pneumothorax or pleural effusion. Visualized bony thorax within normal limits. IMPRESSION: Findings of COPD. Electronically signed by: Fransico Gaspar DO (08/25/2018 11:56 PM) [facility]
--- NOTE | 2018-08-26 00:01 | RAD ---
Indication:ER PATIENT.TRAUMA FALL PAIN IN THE LEFT KNEE. NO PRIORS TECHNIQUE: 3 views of the left knee COMPARISON:08/05/2018 FINDINGS: Severe tricompartmental osteoarthritis. Small suprapatellar effusion. Subacute fracture of the proximal diaphysis of the fibula with evidence of bridging callus formation. No new acute fracture or dislocation. IMPRESSION: As above. Electronically signed by: Fransico Gaspar DO (08/25/2018 11:58 PM) [facility]
--- NOTE | 2018-08-26 01:24 | EKG ---
[facility] [address] [place] [address] Test Date: 2018-08-25 Test Time: 17:34:03 Pat Name: MIKE SAVAGE Department: Room: 204 1 Gender: Female [employer] Instrument Maker: Salvador : 1950 Requested By: DANIELLE DIXON Order Number: [id number] Reading MD: Andrews Santacruz MD Measurements Intervals [place] Rate: 129 P: 14 CT: 138 QRS: 62 QRSD: 86 T: -82 QT: 280 QTc: 412 Interpretive Statements SVT LVH WITH REPOLARIZATION ABNORMALITY Electronically Signed On 09-03-2018 9:31:31 CDT by Andrews Santacruz MD
[2018-08-26 02:42] VITALS: BP 152/69
[2018-08-26 05:29] LABS: BASO # 0.1 x10^3/uL (0.0-0.2); BASO % 1 % (0-3); EOS # 0.3 x10^3/uL (0.0-0.7); EOS % 5 % (0-3); HEMATOCRIT 29.8 % (36.0-47.0); HEMOGLOBIN 9.8 g/dL (12.0-15.5); LYMPH # 1.3 x10^3/uL (1.0-4.8); LYMPH % 20 % (24-48); MEAN CORPUSCULAR HEMOGLOBIN 28 pg (25-35); MEAN CORPUSCULAR HGB CONC 33 g/dL (31-37); MEAN CORPUSCULAR VOLUME 84 fL (79-100); MONO # 0.8 x10^3/uL (0.0-1.1); MONO % 11 % (0-9); NEUT # 4.2 x10^3uL (1.8-7.7); NEUT % 63 % (31-73); PLATELET COUNT 268 x10^3/uL (140-400); RED BLOOD COUNT 3.56 x10^6/uL (3.50-5.40); RED CELL DISTRIBUTION WIDTH 14.7 % (11.5-14.5); WHITE BLOOD COUNT 6.6 x10^3/uL (4.0-11.0)
--- NOTE | 2018-08-26 05:44 | RAD ---
Indication: Trauma TECHNIQUE: AP and lateral views of the left tibia and fibula COMPARISON: None FINDINGS/ impression: Old healing fracture is seen of the proximal diaphysis of the fibula. No other acute fracture or dislocation. Advanced tricompartmental osteoarthritis of the knee joint. Small suprapatellar effusion. Electronically signed by: Fransico Gaspar DO (08/26/2018 5:41 AM) [facility]
[2018-08-26 05:46] LABS: CALCIUM 8.3 mg/dL (8.5-10.1); CREATININE 0.8 mg/dL (0.6-1.0); GFR 86.1; POTASSIUM 3.7 mmol/L (3.5-5.1)
[2018-08-26 07:00] VITALS: BP 132/76
--- NOTE | 2018-08-26 07:51 | RAD ---
Pelvis with left hip, 3 views, 08/25/2018: HISTORY: Fall, hip pain No fracture or dislocation is identified. The hip joint spaces are fairly well preserved with only minimal marginal spurring. Aortoiliac and femoral arterial calcifications are present. IMPRESSION: No acute bony abnormality is detected. Electronically signed by: Matias Cevallos MD (08/26/2018 7:48 AM) [facility]
--- NOTE | 2018-08-26 10:05 | PDOC2 ---
CONSULT Date of Consult Date of Consult DATE: 08/26/18 TIME: 09:39 Reason for Consult Reason for Consult: Left knee pain Identification/Chief Complaint Chief Complaint Left knee pain, pain all over Source Source: Chart review, Patient, Unable to obtain due to (very somnolent, only able to answer a few questions before she was too tired) History of Present Illness Reason for Visit: This 68-year-old woman was admitted with decreased level of consciousness, likely related to hydrocodone. She has a history of left knee arthritis, which has been treated in the past with cortisone injections, and viscous supplementation. She also has a knee brace on currently. She said the cortisone injections only helped a little bit Current Problem List Problem List Problems Medical Problems: (1) Decreased level of consciousness Status: Acute (2) Left knee pain Status: Acute Current Medications Current Medications Current Medications Sodium Chloride 1,000 ml @ 1,000 mls/hr 1X ONCE IV Last administered on at 18:44; Start 08/25/18 at 18:00; Stop 08/25/18 at 18:59; Status DC Sodium Chloride 1,000 ml @ 500 mls/hr 1X ONCE IV Last administered on at 23:18; Start 08/25/18 at 23:15; Stop 08/26/18 at 01:14; Status DC Sodium Chloride 1,000 ml @ 125 mls/hr 1X ONCE IV Last administered on at 23:17; Start 08/25/18 at 23:30; Stop 08/26/18 at 07:29; Status DC Magnesium Sulfate 50 ml @ 25 mls/hr 1X ONCE IV Last administered on 08/25/18at 23:18; Start 08/25/18 at 23:30; Stop 08/26/18 at 01:29; Status DC Active Scripts Active Medrol (Methylprednisolone) 4 Mg Tab.ds.pk 1 Pkg PO UD [place] 5-325 Tablet (Acetaminophen/Hydrocodone Bitart) 1 Each Tablet 1 Tab PO Q8HRS PRN Voltaren (Diclofenac Sodium) 100 Gm Gel..gram. 1 Gm TP QID Ultram (Tramadol Hcl) 50 Mg Tablet 50 Mg PO Q6H PRN Naproxen 500 Mg Tablet.dr 500 Mg PO BID Allergies Allergies: Coded Allergies: No Known Drug Allergies (Unverified , 10/17/15) Physical Exam General: Other (answered a few questions, then went back to sleep) Extremities: Other (the left knee has mild diffuse tenderness, slight diffuse enlargement consistent with arthritis, no erythema or warmth or effusion. There is a knee immobilizer stabilizing the knee. There seems to be valgus pseudo- laxity (chronic, not from acute injury). She has intact sensation at the foot and able to dorsiflex and plantarflex. 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) Vitals VITALS Vital Signs Date Time Temp Pulse Resp B/P (MAP) Pulse Ox O2 Delivery O2 Flow Rate FiO2 08/26/18 07:00 98.0 112 20 132/76 (94) 90 Room Air 2.0 98.0 Labs Labs Laboratory Tests Test 08/25/18 17:31 08/25/18 18:37 08/25/18 19:15 08/26/18 04:30 Glucose (Fingerstick) 92 mg/dL (70-99) White Blood Count 6.5 x10^3/uL (4.0-11.0) 6.6 x10^3/uL (4.0-11.0) Red Blood Count 4.11 x10^6/uL (3.50-5.40) 3.56 x10^6/uL (3.50-5.40) Hemoglobin 11.1 g/dL (12.0-15.5) 9.8 g/dL (12.0-15.5) Hematocrit 34.6 % (36.0-47.0) 29.8 % (36.0-47.0) Mean Corpuscular Volume 84 fL (79-100) 84 fL (79-100) Mean Corpuscular Hemoglobin 27 pg (25-35) 28 pg (25-35) Mean Corpuscular Hemoglobin Concent 32 g/dL (31-37) 33 g/dL (31-37) Red Cell Distribution Width 15.1 % (11.5-14.5) 14.7 % (11.5-14.5) Platelet Count 308 x10^3/uL (140-400) 268 x10^3/uL (140-400) Neutrophils (%) (Auto) 69 % (31-73) 63 % (31-73) Lymphocytes (%) (Auto) 17 % (24-48) 20 % (24-48) Monocytes (%) (Auto) 9 % (0-9) 11 % (0-9) Eosinophils (%) (Auto) 4 % (0-3) 5 % (0-3) Basophils (%) (Auto) 1 % (0-3) 1 % (0-3) Neutrophils # (Auto) 4.5 x10^3uL (1.8-7.7) 4.2 x10^3uL (1.8-7.7) Lymphocytes # (Auto) 1.1 x10^3/uL (1.0-4.8) 1.3 x10^3/uL (1.0-4.8) Monocytes # (Auto) 0.6 x10^3/uL (0.0-1.1) 0.8 x10^3/uL (0.0-1.1) Eosinophils # (Auto) 0.2 x10^3/uL (0.0-0.7) 0.3 x10^3/uL (0.0-0.7) Basophils # (Auto) 0.1 x10^3/uL (0.0-0.2) 0.1 x10^3/uL (0.0-0.2) Sodium Level 138 mmol/L (136-145) 144 mmol/L (136-145) Potassium Level 4.1 mmol/L (3.5-5.1) 3.7 mmol/L (3.5-5.1) Chloride Level 100 mmol/L (98-107) 109 mmol/L (98-107) Carbon Dioxide Level 24 mmol/L (21-32) 25 mmol/L (21-32) Anion Gap 14 (6-14) 10 (6-14) Blood Urea Nitrogen 30 mg/dL (7-20) 14 mg/dL (7-20) Creatinine 1.9 mg/dL (0.6-1.0) 0.8 mg/dL (0.6-1.0) Estimated GFR (Cockcroft-Gault) 31.7 86.1 BUN/Creatinine Ratio 16 (6-20) Glucose Level 105 mg/dL (70-99) 114 mg/dL (70-99) Lactic Acid Level 1.0 mmol/L (0.4-2.0) Calcium Level 9.4 mg/dL (8.5-10.1) 8.3 mg/dL (8.5-10.1) Magnesium Level 1.5 mg/dL (1.8-2.4) Total Bilirubin 0.4 mg/dL (0.2-1.0) Aspartate Amino Transf (AST/SGOT) 41 U/L (15-37) Alanine Aminotransferase (ALT/SGPT) 19 U/L (14-59) Alkaline Phosphatase 112 U/L (46-116) Creatine Kinase 858 U/L (26-192) Creatine Kinase MB (Mass) 3.8 ng/mL (0.0-3.6) Creatine Kinase MB Relative Index 0.4 % (0-4) Troponin I Quantitative < 0.017 ng/mL (0.000-0.055) Total Protein 8.2 g/dL (6.4-8.2) Albumin 3.4 g/dL (3.4-5.0) Albumin/Globulin Ratio 0.7 (1.0-1.7) Ethyl Alcohol Level < 10 mg/dL (0-10) Urine Collection Type U cath Urine Color Yellow Urine Clarity Clear Urine pH 5.0 Urine Specific [place] >=1.030 Urine Protein 30 mg/dL (NEG-TRACE) Urine Glucose (UA) Negative mg/dL (NEG) Urine Ketones (Stick) Trace mg/dL (NEG) Urine Blood Negative (NEG) Urine Nitrite Negative (NEG) Urine Bilirubin Moderate (NEG) Urine Urobilinogen Dipstick 0.2 mg/dL (0.2 mg/dL) Urine Leukocyte Esterase Negative (NEG) Urine RBC Rare /HPF (0-2) Urine WBC Rare /HPF (0-4) Urine Squamous Epithelial Cells Few /LPF Urine Bacteria 0 /HPF (0-FEW) Urine Hyaline Casts Moderate /HPF Urine Mucus Mod /LPF Urine Opiates Screen Pos (NEG) Urine Methadone Screen Neg (NEG) Urine Barbiturates Neg (NEG) Urine Phencyclidine Screen Neg (NEG) Urine Amphetamine/Methamphetamine Neg (NEG) Urine Benzodiazepines Screen Neg (NEG) Urine Cocaine Screen Neg (NEG) Urine Cannabinoids Screen Neg (NEG) Urine Ethyl Alcohol Neg (NEG) Laboratory Tests Test 08/25/18 17:31 08/25/18 18:37 08/25/18 19:15 08/26/18 04:30 Glucose (Fingerstick) 92 mg/dL (70-99) White Blood Count 6.5 x10^3/uL (4.0-11.0) 6.6 x10^3/uL (4.0-11.0) Red Blood Count 4.11 x10^6/uL (3.50-5.40) 3.56 x10^6/uL (3.50-5.40) Hemoglobin 11.1 g/dL (12.0-15.5) 9.8 g/dL (12.0-15.5) Hematocrit 34.6 % (36.0-47.0) 29.8 % (36.0-47.0) Mean Corpuscular Volume 84 fL (79-100) 84 fL (79-100) Mean Corpuscular Hemoglobin 27 pg (25-35) 28 pg (25-35) Mean Corpuscular Hemoglobin Concent 32 g/dL (31-37) 33 g/dL (31-37) Red Cell Distribution Width 15.1 % (11.5-14.5) 14.7 % (11.5-14.5) Platelet Count 308 x10^3/uL (140-400) 268 x10^3/uL (140-400) Neutrophils (%) (Auto) 69 % (31-73) 63 % (31-73) Lymphocytes (%) (Auto) 17 % (24-48) 20 % (24-48) Monocytes (%) (Auto) 9 % (0-9) 11 % (0-9) Eosinophils (%) (Auto) 4 % (0-3) 5 % (0-3) Basophils (%) (Auto) 1 % (0-3) 1 % (0-3) Neutrophils # (Auto) 4.5 x10^3uL (1.8-7.7) 4.2 x10^3uL (1.8-7.7) Lymphocytes # (Auto) 1.1 x10^3/uL (1.0-4.8) 1.3 x10^3/uL (1.0-4.8) Monocytes # (Auto) 0.6 x10^3/uL (0.0-1.1) 0.8 x10^3/uL (0.0-1.1) Eosinophils # (Auto) 0.2 x10^3/uL (0.0-0.7) 0.3 x10^3/uL (0.0-0.7) Basophils # (Auto) 0.1 x10^3/uL (0.0-0.2) 0.1 x10^3/uL (0.0-0.2) Sodium Level 138 mmol/L (136-145) 144 mmol/L (136-145) Potassium Level 4.1 mmol/L (3.5-5.1) 3.7 mmol/L (3.5-5.1) Chloride Level 100 mmol/L (98-107) 109 mmol/L (98-107) Carbon Dioxide Level 24 mmol/L (21-32) 25 mmol/L (21-32) Anion Gap 14 (6-14) 10 (6-14) Blood Urea Nitrogen 30 mg/dL (7-20) 14 mg/dL (7-20) Creatinine 1.9 mg/dL (0.6-1.0) 0.8 mg/dL (0.6-1.0) Estimated GFR (Cockcroft-Gault) 31.7 86.1 BUN/Creatinine Ratio 16 (6-20) Glucose Level 105 mg/dL (70-99) 114 mg/dL (70-99) Lactic Acid Level 1.0 mmol/L (0.4-2.0) Calcium Level 9.4 mg/dL (8.5-10.1) 8.3 mg/dL (8.5-10.1) Magnesium Level 1.5 mg/dL (1.8-2.4) Total Bilirubin 0.4 mg/dL (0.2-1.0) Aspartate Amino Transf (AST/SGOT) 41 U/L (15-37) Alanine Aminotransferase (ALT/SGPT) 19 U/L (14-59) Alkaline Phosphatase 112 U/L (46-116) Creatine Kinase 858 U/L (26-192) Creatine Kinase MB (Mass) 3.8 ng/mL (0.0-3.6) Creatine Kinase MB Relative Index 0.4 % (0-4) Troponin I Quantitative < 0.017 ng/mL (0.000-0.055) Total Protein 8.2 g/dL (6.4-8.2) Albumin 3.4 g/dL (3.4-5.0) Albumin/Globulin Ratio 0.7 (1.0-1.7) Ethyl Alcohol Level < 10 mg/dL (0-10) Urine Collection Type U cath Urine Color Yellow Urine Clarity Clear Urine pH 5.0 Urine Specific [place] >=1.030 Urine Protein 30 mg/dL (NEG-TRACE) Urine Glucose (UA) Negative mg/dL (NEG) Urine Ketones (Stick) Trace mg/dL (NEG) Urine Blood Negative (NEG) Urine Nitrite Negative (NEG) Urine Bilirubin Moderate (NEG) Urine Urobilinogen Dipstick 0.2 mg/dL (0.2 mg/dL) Urine Leukocyte Esterase Negative (NEG) Urine RBC Rare /HPF (0-2) Urine WBC Rare /HPF (0-4) Urine Squamous Epithelial Cells Few /LPF Urine Bacteria 0 /HPF (0-FEW) Urine Hyaline Casts Moderate /HPF Urine Mucus Mod /LPF Urine Opiates Screen Pos (NEG) Urine Methadone Screen Neg (NEG) Urine Barbiturates Neg (NEG) Urine Phencyclidine Screen Neg (NEG) Urine Amphetamine/Methamphetamine Neg (NEG) Urine Benzodiazepines Screen Neg (NEG) Urine Cocaine Screen Neg (NEG) Urine Cannabinoids Screen Neg (NEG) Urine Ethyl Alcohol Neg (NEG) Images Images Report reviewed, images independently reviewed. Severe left knee osteoarthritis. Remote fibula fracture with callus formation. [facility] [address] [place] [address] IMAGING REPORT Signed PATIENT: MIKE SAVAGE ACCOUNT: [id number] : 1950 LOCATION: [address] [place] [address] AGE: 68 SEX: F EXAM STATUS: ADM IN ORD. PHYSICIAN: DANIELLE DIXON APRN REASON: decreased LOC- EMS reports pt had fallen PROCEDURE: KNEE LEFT 3V Indication:ER PATIENT.TRAUMA FALL PAIN IN THE LEFT KNEE. NO PRIORS TECHNIQUE: 3 views of the left knee COMPARISON:08/05/2018 FINDINGS: Severe tricompartmental osteoarthritis. Small suprapatellar effusion. Subacute fracture of the proximal diaphysis of the fibula with evidence of bridging callus formation. No new acute fracture or dislocation. IMPRESSION: As above. Electronically signed by: Fransico Gaspar DO (08/25/2018 11:58 PM) [facility] DICTATED and SIGNED BY: FRANSICO GASPAR DO DATE: 08/25/18 3755 Assessment/Plan Assessment/Plan Left knee osteoarthritis. She and I discussed the potential of another cortisone injection. She wants to think about that. JOHNATHAN LING MD Aug 26, 2018 10:05
[2018-08-26 10:49] VITALS: BP 137/70
--- NOTE | 2018-08-26 12:12 | PDOC ---
PROGRESS NOTES History of Present Illness History of Present Illness Assessment/Plan Assessment/Plan IMPRESSION 1. POSSIBLE ACCIDENTAL NARCOTIC OVERDOSE/ TRAMADOL/ HYDROCODONE 2. LEFT KNEE PAIN //Old healing fracture is seen of the proximal diaphysis of the fibula 3. ALTERED MENTATION 4. DEHYDRATION 5. COPD 6. OSTEOARTHRITIS///Left knee osteoarthritis. 7. ARF/ VASOMOTOR NEPHROPATHY 8. LEFT HIP PAIN 9. 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 11. Slurred speech, intermittent chronic for months. 12. Cognitive impairment. PLAN TELE NEUROCHECKS Q 4 HRS IV FLUID SUPPORT FOLLOW RENAL FX GLUCOSE MGT NEUROLOGY CONSULT FALL PRECAUTIONS HIGH RISK PT AT RISK FOR SUDDEN DUE TO NARCOTIC USE// REC STOPPING ALL NARCOTICS PER MY CHART REVIEW Vitals Vitals Vital Signs Date Time Temp Pulse Resp B/P (MAP) Pulse Ox O2 Delivery O2 Flow Rate FiO2 08/26/18 10:49 98.6 105 20 137/70 (92) 96 Room Air 2.0 98.6 Physical Exam General: Alert, Oriented X3, Cooperative, No acute distress, Other (answered a few questions, then went back to sleep) Heart: Regular rate, Normal S1, Normal S2, No murmurs Lungs: Clear Abdomen: Normal bowel sounds, Soft, No tenderness Extremities: No cyanosis, Other (the left knee has mild diffuse tenderness, slight diffuse enlargement consistent with arthritis, no erythema or warmth or effusion. There is a knee immobilizer stabilizing the knee. There seems to be valgus pseudo-laxity (chronic, not from acute injury). She has intact sensation at the foot and able to dorsiflex and plantarflex. 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) Skin: No significant lesion Labs LABS Laboratory Tests Test 08/25/18 17:31 08/25/18 18:37 08/25/18 19:15 08/26/18 04:30 Glucose (Fingerstick) 92 mg/dL (70-99) White Blood Count 6.5 x10^3/uL (4.0-11.0) 6.6 x10^3/uL (4.0-11.0) Red Blood Count 4.11 x10^6/uL (3.50-5.40) 3.56 x10^6/uL (3.50-5.40) Hemoglobin 11.1 g/dL (12.0-15.5) 9.8 g/dL (12.0-15.5) Hematocrit 34.6 % (36.0-47.0) 29.8 % (36.0-47.0) Mean Corpuscular Volume 84 fL (79-100) 84 fL (79-100) Mean Corpuscular Hemoglobin 27 pg (25-35) 28 pg (25-35) Mean Corpuscular Hemoglobin Concent 32 g/dL (31-37) 33 g/dL (31-37) Red Cell Distribution Width 15.1 % (11.5-14.5) 14.7 % (11.5-14.5) Platelet Count 308 x10^3/uL (140-400) 268 x10^3/uL (140-400) Neutrophils (%) (Auto) 69 % (31-73) 63 % (31-73) Lymphocytes (%) (Auto) 17 % (24-48) 20 % (24-48) Monocytes (%) (Auto) 9 % (0-9) 11 % (0-9) Eosinophils (%) (Auto) 4 % (0-3) 5 % (0-3) Basophils (%) (Auto) 1 % (0-3) 1 % (0-3) Neutrophils # (Auto) 4.5 x10^3uL (1.8-7.7) 4.2 x10^3uL (1.8-7.7) Lymphocytes # (Auto) 1.1 x10^3/uL (1.0-4.8) 1.3 x10^3/uL (1.0-4.8) Monocytes # (Auto) 0.6 x10^3/uL (0.0-1.1) 0.8 x10^3/uL (0.0-1.1) Eosinophils # (Auto) 0.2 x10^3/uL (0.0-0.7) 0.3 x10^3/uL (0.0-0.7) Basophils # (Auto) 0.1 x10^3/uL (0.0-0.2) 0.1 x10^3/uL (0.0-0.2) Sodium Level 138 mmol/L (136-145) 144 mmol/L (136-145) Potassium Level 4.1 mmol/L (3.5-5.1) 3.7 mmol/L (3.5-5.1) Chloride Level 100 mmol/L (98-107) 109 mmol/L (98-107) Carbon Dioxide Level 24 mmol/L (21-32) 25 mmol/L (21-32) Anion Gap 14 (6-14) 10 (6-14) Blood Urea Nitrogen 30 mg/dL (7-20) 14 mg/dL (7-20) Creatinine 1.9 mg/dL (0.6-1.0) 0.8 mg/dL (0.6-1.0) Estimated GFR (Cockcroft-Gault) 31.7 86.1 BUN/Creatinine Ratio 16 (6-20) Glucose Level 105 mg/dL (70-99) 114 mg/dL (70-99) Lactic Acid Level 1.0 mmol/L (0.4-2.0) Calcium Level 9.4 mg/dL (8.5-10.1) 8.3 mg/dL (8.5-10.1) Magnesium Level 1.5 mg/dL (1.8-2.4) Total Bilirubin 0.4 mg/dL (0.2-1.0) Aspartate Amino Transf (AST/SGOT) 41 U/L (15-37) Alanine Aminotransferase (ALT/SGPT) 19 U/L (14-59) Alkaline Phosphatase 112 U/L (46-116) Creatine Kinase 858 U/L (26-192) Creatine Kinase MB (Mass) 3.8 ng/mL (0.0-3.6) Creatine Kinase MB Relative Index 0.4 % (0-4) Troponin I Quantitative < 0.017 ng/mL (0.000-0.055) Total Protein 8.2 g/dL (6.4-8.2) Albumin 3.4 g/dL (3.4-5.0) Albumin/Globulin Ratio 0.7 (1.0-1.7) Ethyl Alcohol Level < 10 mg/dL (0-10) Urine Collection Type U cath Urine Color Yellow Urine Clarity Clear Urine pH 5.0 Urine Specific [place] >=1.030 Urine Protein 30 mg/dL (NEG-TRACE) Urine Glucose (UA) Negative mg/dL (NEG) Urine Ketones (Stick) Trace mg/dL (NEG) Urine Blood Negative (NEG) Urine Nitrite Negative (NEG) Urine Bilirubin Moderate (NEG) Urine Urobilinogen Dipstick 0.2 mg/dL (0.2 mg/dL) Urine Leukocyte Esterase Negative (NEG) Urine RBC Rare /HPF (0-2) Urine WBC Rare /HPF (0-4) Urine Squamous Epithelial Cells Few /LPF Urine Bacteria 0 /HPF (0-FEW) Urine Hyaline Casts Moderate /HPF Urine Mucus Mod /LPF Urine Opiates Screen Pos (NEG) Urine Methadone Screen Neg (NEG) Urine Barbiturates Neg (NEG) Urine Phencyclidine Screen Neg (NEG) Urine Amphetamine/Methamphetamine Neg (NEG) Urine Benzodiazepines Screen Neg (NEG) Urine Cocaine Screen Neg (NEG) Urine Cannabinoids Screen Neg (NEG) Urine Ethyl Alcohol Neg (NEG) Assessment and Plan Assessmemt and Plan Problems Medical Problems: (1) Decreased level of consciousness Status: Acute (2) Left knee pain Status: Acute Comment Review of Relevant I have reviewed the following items della (where applicable) has been applied. Labs Laboratory Tests Test 08/25/18 17:31 08/25/18 18:37 08/25/18 19:15 08/26/18 04:30 Glucose (Fingerstick) 92 mg/dL (70-99) White Blood Count 6.5 x10^3/uL (4.0-11.0) 6.6 x10^3/uL (4.0-11.0) Red Blood Count 4.11 x10^6/uL (3.50-5.40) 3.56 x10^6/uL (3.50-5.40) Hemoglobin 11.1 g/dL (12.0-15.5) 9.8 g/dL (12.0-15.5) Hematocrit 34.6 % (36.0-47.0) 29.8 % (36.0-47.0) Mean Corpuscular Volume 84 fL (79-100) 84 fL (79-100) Mean Corpuscular Hemoglobin 27 pg (25-35) 28 pg (25-35) Mean Corpuscular Hemoglobin Concent 32 g/dL (31-37) 33 g/dL (31-37) Red Cell Distribution Width 15.1 % (11.5-14.5) 14.7 % (11.5-14.5) Platelet Count 308 x10^3/uL (140-400) 268 x10^3/uL (140-400) Neutrophils (%) (Auto) 69 % (31-73) 63 % (31-73) Lymphocytes (%) (Auto) 17 % (24-48) 20 % (24-48) Monocytes (%) (Auto) 9 % (0-9) 11 % (0-9) Eosinophils (%) (Auto) 4 % (0-3) 5 % (0-3) Basophils (%) (Auto) 1 % (0-3) 1 % (0-3) Neutrophils # (Auto) 4.5 x10^3uL (1.8-7.7) 4.2 x10^3uL (1.8-7.7) Lymphocytes # (Auto) 1.1 x10^3/uL (1.0-4.8) 1.3 x10^3/uL (1.0-4.8) Monocytes # (Auto) 0.6 x10^3/uL (0.0-1.1) 0.8 x10^3/uL (0.0-1.1) Eosinophils # (Auto) 0.2 x10^3/uL (0.0-0.7) 0.3 x10^3/uL (0.0-0.7) Basophils # (Auto) 0.1 x10^3/uL (0.0-0.2) 0.1 x10^3/uL (0.0-0.2) Sodium Level 138 mmol/L (136-145) 144 mmol/L (136-145) Potassium Level 4.1 mmol/L (3.5-5.1) 3.7 mmol/L (3.5-5.1) Chloride Level 100 mmol/L (98-107) 109 mmol/L (98-107) Carbon Dioxide Level 24 mmol/L (21-32) 25 mmol/L (21-32) Anion Gap 14 (6-14) 10 (6-14) Blood Urea Nitrogen 30 mg/dL (7-20) 14 mg/dL (7-20) Creatinine 1.9 mg/dL (0.6-1.0) 0.8 mg/dL (0.6-1.0) Estimated GFR (Cockcroft-Gault) 31.7 86.1 BUN/Creatinine Ratio 16 (6-20) Glucose Level 105 mg/dL (70-99) 114 mg/dL (70-99) Lactic Acid Level 1.0 mmol/L (0.4-2.0) Calcium Level 9.4 mg/dL (8.5-10.1) 8.3 mg/dL (8.5-10.1) Magnesium Level 1.5 mg/dL (1.8-2.4) Total Bilirubin 0.4 mg/dL (0.2-1.0) Aspartate Amino Transf (AST/SGOT) 41 U/L (15-37) Alanine Aminotransferase (ALT/SGPT) 19 U/L (14-59) Alkaline Phosphatase 112 U/L (46-116) Creatine Kinase 858 U/L (26-192) Creatine Kinase MB (Mass) 3.8 ng/mL (0.0-3.6) Creatine Kinase MB Relative Index 0.4 % (0-4) Troponin I Quantitative < 0.017 ng/mL (0.000-0.055) Total Protein 8.2 g/dL (6.4-8.2) Albumin 3.4 g/dL (3.4-5.0) Albumin/Globulin Ratio 0.7 (1.0-1.7) Ethyl Alcohol Level < 10 mg/dL (0-10) Urine Collection Type U cath Urine Color Yellow Urine Clarity Clear Urine pH 5.0 Urine Specific [place] >=1.030 Urine Protein 30 mg/dL (NEG-TRACE) Urine Glucose (UA) Negative mg/dL (NEG) Urine Ketones (Stick) Trace mg/dL (NEG) Urine Blood Negative (NEG) Urine Nitrite Negative (NEG) Urine Bilirubin Moderate (NEG) Urine Urobilinogen Dipstick 0.2 mg/dL (0.2 mg/dL) Urine Leukocyte Esterase Negative (NEG) Urine RBC Rare /HPF (0-2) Urine WBC Rare /HPF (0-4) Urine Squamous Epithelial Cells Few /LPF Urine Bacteria 0 /HPF (0-FEW) Urine Hyaline Casts Moderate /HPF Urine Mucus Mod /LPF Urine Opiates Screen Pos (NEG) Urine Methadone Screen Neg (NEG) Urine Barbiturates Neg (NEG) Urine Phencyclidine Screen Neg (NEG) Urine Amphetamine/Methamphetamine Neg (NEG) Urine Benzodiazepines Screen Neg (NEG) Urine Cocaine Screen Neg (NEG) Urine Cannabinoids Screen Neg (NEG) Urine Ethyl Alcohol Neg (NEG) Laboratory Tests Test 08/25/18 17:31 08/25/18 18:37 08/25/18 19:15 08/26/18 04:30 Glucose (Fingerstick) 92 mg/dL (70-99) White Blood Count 6.5 x10^3/uL (4.0-11.0) 6.6 x10^3/uL (4.0-11.0) Red Blood Count 4.11 x10^6/uL (3.50-5.40) 3.56 x10^6/uL (3.50-5.40) Hemoglobin 11.1 g/dL (12.0-15.5) 9.8 g/dL (12.0-15.5) Hematocrit 34.6 % (36.0-47.0) 29.8 % (36.0-47.0) Mean Corpuscular Volume 84 fL (79-100) 84 fL (79-100) Mean Corpuscular Hemoglobin 27 pg (25-35) 28 pg (25-35) Mean Corpuscular Hemoglobin Concent 32 g/dL (31-37) 33 g/dL (31-37) Red Cell Distribution Width 15.1 % (11.5-14.5) 14.7 % (11.5-14.5) Platelet Count 308 x10^3/uL (140-400) 268 x10^3/uL (140-400) Neutrophils (%) (Auto) 69 % (31-73) 63 % (31-73) Lymphocytes (%) (Auto) 17 % (24-48) 20 % (24-48) Monocytes (%) (Auto) 9 % (0-9) 11 % (0-9) Eosinophils (%) (Auto) 4 % (0-3) 5 % (0-3) Basophils (%) (Auto) 1 % (0-3) 1 % (0-3) Neutrophils # (Auto) 4.5 x10^3uL (1.8-7.7) 4.2 x10^3uL (1.8-7.7) Lymphocytes # (Auto) 1.1 x10^3/uL (1.0-4.8) 1.3 x10^3/uL (1.0-4.8) Monocytes # (Auto) 0.6 x10^3/uL (0.0-1.1) 0.8 x10^3/uL (0.0-1.1) Eosinophils # (Auto) 0.2 x10^3/uL (0.0-0.7) 0.3 x10^3/uL (0.0-0.7) Basophils # (Auto) 0.1 x10^3/uL (0.0-0.2) 0.1 x10^3/uL (0.0-0.2) Sodium Level 138 mmol/L (136-145) 144 mmol/L (136-145) Potassium Level 4.1 mmol/L (3.5-5.1) 3.7 mmol/L (3.5-5.1) Chloride Level 100 mmol/L (98-107) 109 mmol/L (98-107) Carbon Dioxide Level 24 mmol/L (21-32) 25 mmol/L (21-32) Anion Gap 14 (6-14) 10 (6-14) Blood Urea Nitrogen 30 mg/dL (7-20) 14 mg/dL (7-20) Creatinine 1.9 mg/dL (0.6-1.0) 0.8 mg/dL (0.6-1.0) Estimated GFR (Cockcroft-Gault) 31.7 86.1 BUN/Creatinine Ratio 16 (6-20) Glucose Level 105 mg/dL (70-99) 114 mg/dL (70-99) Lactic Acid Level 1.0 mmol/L (0.4-2.0) Calcium Level 9.4 mg/dL (8.5-10.1) 8.3 mg/dL (8.5-10.1) Magnesium Level 1.5 mg/dL (1.8-2.4) Total Bilirubin 0.4 mg/dL (0.2-1.0) Aspartate Amino Transf (AST/SGOT) 41 U/L (15-37) Alanine Aminotransferase (ALT/SGPT) 19 U/L (14-59) Alkaline Phosphatase 112 U/L (46-116) Creatine Kinase 858 U/L (26-192) Creatine Kinase MB (Mass) 3.8 ng/mL (0.0-3.6) Creatine Kinase MB Relative Index 0.4 % (0-4) Troponin I Quantitative < 0.017 ng/mL (0.000-0.055) Total Protein 8.2 g/dL (6.4-8.2) Albumin 3.4 g/dL (3.4-5.0) Albumin/Globulin Ratio 0.7 (1.0-1.7) Ethyl Alcohol Level < 10 mg/dL (0-10) Urine Collection Type U cath Urine Color Yellow Urine Clarity Clear Urine pH 5.0 Urine Specific [place] >=1.030 Urine Protein 30 mg/dL (NEG-TRACE) Urine Glucose (UA) Negative mg/dL (NEG) Urine Ketones (Stick) Trace mg/dL (NEG) Urine Blood Negative (NEG) Urine Nitrite Negative (NEG) Urine Bilirubin Moderate (NEG) Urine Urobilinogen Dipstick 0.2 mg/dL (0.2 mg/dL) Urine Leukocyte Esterase Negative (NEG) Urine RBC Rare /HPF (0-2) Urine WBC Rare /HPF (0-4) Urine Squamous Epithelial Cells Few /LPF Urine Bacteria 0 /HPF (0-FEW) Urine Hyaline Casts Moderate /HPF Urine Mucus Mod /LPF Urine Opiates Screen Pos (NEG) Urine Methadone Screen Neg (NEG) Urine Barbiturates Neg (NEG) Urine Phencyclidine Screen Neg (NEG) Urine Amphetamine/Methamphetamine Neg (NEG) Urine Benzodiazepines Screen Neg (NEG) Urine Cocaine Screen Neg (NEG) Urine Cannabinoids Screen Neg (NEG) Urine Ethyl Alcohol Neg (NEG) Medications Current Medications Sodium Chloride 1,000 ml @ 1,000 mls/hr 1X ONCE IV Last administered on at 18:44; Start 08/25/18 at 18:00; Stop 08/25/18 at 18:59; Status DC Sodium Chloride 1,000 ml @ 500 mls/hr 1X ONCE IV Last administered on at 23:18; Start 08/25/18 at 23:15; Stop 08/26/18 at 01:14; Status DC Sodium Chloride 1,000 ml @ 125 mls/hr 1X ONCE IV Last administered on at 23:17; Start 08/25/18 at 23:30; Stop 08/26/18 at 07:29; Status DC Magnesium Sulfate 50 ml @ 25 mls/hr 1X ONCE IV Last administered on 08/25/18at 23:18; Start 08/25/18 at 23:30; Stop 08/26/18 at 01:29; Status DC Active Scripts Active Medrol (Methylprednisolone) 4 Mg Tab.ds.pk 1 Pkg PO UD [place] 5-325 Tablet (Acetaminophen/Hydrocodone Bitart) 1 Each Tablet 1 Tab PO Q8HRS PRN Voltaren (Diclofenac Sodium) 100 Gm Gel..gram. 1 Gm TP QID Ultram (Tramadol Hcl) 50 Mg Tablet 50 Mg PO Q6H PRN Naproxen 500 Mg Tablet.dr 500 Mg PO BID Vitals/I & O Vital Sign - Last 24 Hours 08/25/18 08/25/18 08/25/18 08/25/18 17:31 18:43 19:00 19:30 Temp 98.3 98.3 Pulse 124 118 116 114 Resp 20 20 B/P (MAP) 138/76 (96) 119/87 (98) 127/83 (98) 142/88 (106) Pulse Ox 96 97 97 98 O2 Delivery Room Air Nasal Cannula Nasal Cannula Nasal Cannula O2 Flow Rate 2.0 2.0 2.0 08/25/18 08/25/18 08/25/18 08/25/18 20:00 20:30 21:40 22:17 Temp 98.2 98.8 98.2 98.8 Pulse 114 124 123 Resp 22 16 B/P (MAP) 157/71 (99) 158/75 (102) 150/84 (106) Pulse Ox 97 100 99 O2 Delivery Nasal Cannula Room Air Nasal Cannula Nasal Cannula O2 Flow Rate 2.0 2.0 2.0 08/26/18 08/26/18 08/26/18 08/26/18 02:42 07:00 08:00 10:49 Temp 98.4 98.0 98.6 98.4 98.0 98.6 Pulse 113 112 105 Resp 16 20 20 B/P (MAP) 152/69 (96) 132/76 (94) 137/70 (92) Pulse Ox 100 90 96 O2 Delivery Nasal Cannula Room Air Nasal Cannula Room Air O2 Flow Rate 2.0 2.0 2.0 2.0 Intake and Output 08/25/18 08/25/18 08/26/18 15:00 23:00 07:00 Intake Total 120 ml Output Total 825 ml Balance -705 ml JAYSHREE BURROWS MD Aug 26, 2018 12:11
--- NOTE | 2018-08-26 13:44 | NUR ---
SS following for discharge planning. SS reviewed pt chart. Pt is from home and is currently requiring oxygen. Pt is part of the [facility]. No discharge needs noted at this time. SS will continue to follow for pending discharge needs.
[2018-08-26 15:00] VITALS: BP 149/80
[2018-08-26] MEDS ORDERED: ACETAMINOPHEN 325 MG TABLET. PO PRN (15:30)
--- NOTE | 2018-08-26 16:38 | PDOC2 ---
NEUROLOGY CONSULT Date of Admission Date of Admission DATE: 08/26/18 TIME: 16:13 Reason for Consult Reason for Consult: IMPRESSION: Metabolic encephalopathy. Narcotic use/abuse. Slurred speech, intermittent chronic for months. Cognitive impairment. Severe tricompartment osteoarthritis of left knee. Old fracture proximal diaphysis of fibula. COPD. DM. HTN. RECOMMENDATIONS/PLAN: HCT and CCT performed no acute findings. Consulted Ortho. Treat medical diseases. Avoid narcotics as possible. OT/PT. HISTORY OF THE PRESENT ILLNESS: 68-y-old AA female patient with above medical and surgical diseases and chronic intermitted speech problems for months or 2 years as she thought due to loss of teeth. She has chronic pain and has been using narcotics. She had mental status changes this time and was noted pinpoint pupils on 08/25/18. neurology was called for consultation on 08/26/18 for MS changes. Past Medical History Arthritis, COPD, Diabetes-Type II, Hypertension PAST SURGERY HISTORY: Tubal ligation, RIGHT BREAST SX, CATARACTS SX ALLERGY: Unknown MEDICATIONS: Refer to [facility] HISTORY: HTN. SOCIAL HISTORY: Lives alone. Denies smoking, drinking, and illicit drug use. She uses narcotics. REVIEW OF SYSTEMS: Constitutional: No malnutrition, weight loss, cachexia. Head: No traumatic brain or head injury. Skin: No edema, or rash. Ear: No infection. Eyes: No vision loss or color blindness. Nose: No bleeding or purulent discharges. Hearing: Hearing decrease. Neck: No injury. Breast: No history of cancer, masses,or discharges. Cardiac: HTN. Pulmonary: COPD. GI: No GI ulcer, GI bleeding. Urinary/genital: UTI. Endocrinologic: Diabetes Mellitus. Skeletomuscular: left knee pain. Neurological: see HP. Psychiatric: Narcotics use/abuse. Otherwise, not [id number] review of systems. PHYSICAL EXAMINATION: General appearance is in chronic on subacute distress. HEENT: Normocephalic and nontraumatic. Eyes, nose, ears, and throat are unremarkable. Neck is supple. No lymphadenopathy. No crepitus. Cardiovascular: S1, S2, regular rate and rhythm. Pulmonary: Clear to auscultation bilaterally. Abdomen: Bowel sounds are positive. Abdomen is soft, nontender, and nondistended. Extremities: No rash, lesions, or edema. No restriction of range of motion NEUROLOGICAL EXAMINATION: Awake. Oriented partially to time, place and person. Her reaction was slow. PERRL. Pupils 2 mm. EOMI. CN: no focal findings. Muscle tone: within normal. Muscle strength: 5 UE and right LE, left knee pain with restriction of range of motion. DTR:1- 2 Plantar reflex: Neutral response bilaterally Gait: not able to walk w/o assistance due to left knee pain. Sensory exam: no abnormal findings. No cerebellar signs elicited. F-T-N test fine. Current Medications Current Medications Current Medications Sodium Chloride 1,000 ml @ 1,000 mls/hr 1X ONCE IV Last administered on at 18:44; Start 08/25/18 at 18:00; Stop 08/25/18 at 18:59; Status DC Sodium Chloride 1,000 ml @ 500 mls/hr 1X ONCE IV Last administered on at 23:18; Start 08/25/18 at 23:15; Stop 08/26/18 at 01:14; Status DC Sodium Chloride 1,000 ml @ 125 mls/hr 1X ONCE IV Last administered on at 23:17; Start 08/25/18 at 23:30; Stop 08/26/18 at 07:29; Status DC Magnesium Sulfate 50 ml @ 25 mls/hr 1X ONCE IV Last administered on 08/25/18at 23:18; Start 08/25/18 at 23:30; Stop 08/26/18 at 01:29; Status DC Acetaminophen (Tylenol) 650 mg PRN Q6HRS PRN PO MILD PAIN; Start 08/26/18 at 15 :30 Active Scripts Active Medrol (Methylprednisolone) 4 Mg Tab.ds.pk 1 Pkg PO UD [place] 5-325 Tablet (Acetaminophen/Hydrocodone Bitart) 1 Each Tablet 1 Tab PO Q8HRS PRN Voltaren (Diclofenac Sodium) 100 Gm Gel..gram. 1 Gm TP QID Ultram (Tramadol Hcl) 50 Mg Tablet 50 Mg PO Q6H PRN Naproxen 500 Mg Tablet.dr 500 Mg PO BID Allergies Allergies: Allergies Coded Allergies Type Severity Reaction Last Updated Verified No Known Drug Allergies 10/17/15 No ROS Review of System The patient denies any associated fevers, chills, headache, ear pain, rhinorrhea , sore throat, stiff neck, productive cough, chest pain, shortness of breath, back or flank pain, abdominal pain, nausea, vomiting, diarrhea, constipation, dysuria, rash, numbness, weakness, tingling, incontinence, difficulty ambulating, or diaphoresis. Physical Exam Physical Exam General: Well developed, well nourished, no acute distress, well appearing HEENT: Pupils equally round and reactive to light, EOMI, no discharge, normal conjunctiva Neck: Supple, no nuchal rigidity, no JVD, trachea midline, no tenderness Cardiac: RRR, no murmurs, no gallops, no rubs Chest/Lungs: CTAB, no wheeze, no rhonchi, no crackles Abdomen: soft, non-distended, no guarding, no peritoneal signs, non-tender Back: No tenderness Extremities: no edema, pulses intact, non-tender,capillary refill <3 sec bilateral upper and lower extremities, Neuro: Alert and oriented x 4, no focal deficits, normal speech Vitals Vitals: Vital Signs Date Time Temp Pulse Resp B/P (MAP) Pulse Ox O2 Delivery O2 Flow Rate FiO2 08/26/18 15:00 98.5 108 22 149/80 (103) 94 Nasal Cannula 2.0 98.5 Labs Labs Laboratory Tests Test 08/25/18 17:31 08/25/18 18:37 08/25/18 19:15 08/26/18 04:30 Glucose (Fingerstick) 92 mg/dL (70-99) White Blood Count 6.5 x10^3/uL (4.0-11.0) 6.6 x10^3/uL (4.0-11.0) Red Blood Count 4.11 x10^6/uL (3.50-5.40) 3.56 x10^6/uL (3.50-5.40) Hemoglobin 11.1 g/dL (12.0-15.5) 9.8 g/dL (12.0-15.5) Hematocrit 34.6 % (36.0-47.0) 29.8 % (36.0-47.0) Mean Corpuscular Volume 84 fL (79-100) 84 fL (79-100) Mean Corpuscular Hemoglobin 27 pg (25-35) 28 pg (25-35) Mean Corpuscular Hemoglobin Concent 32 g/dL (31-37) 33 g/dL (31-37) Red Cell Distribution Width 15.1 % (11.5-14.5) 14.7 % (11.5-14.5) Platelet Count 308 x10^3/uL (140-400) 268 x10^3/uL (140-400) Neutrophils (%) (Auto) 69 % (31-73) 63 % (31-73) Lymphocytes (%) (Auto) 17 % (24-48) 20 % (24-48) Monocytes (%) (Auto) 9 % (0-9) 11 % (0-9) Eosinophils (%) (Auto) 4 % (0-3) 5 % (0-3) Basophils (%) (Auto) 1 % (0-3) 1 % (0-3) Neutrophils # (Auto) 4.5 x10^3uL (1.8-7.7) 4.2 x10^3uL (1.8-7.7) Lymphocytes # (Auto) 1.1 x10^3/uL (1.0-4.8) 1.3 x10^3/uL (1.0-4.8) Monocytes # (Auto) 0.6 x10^3/uL (0.0-1.1) 0.8 x10^3/uL (0.0-1.1) Eosinophils # (Auto) 0.2 x10^3/uL (0.0-0.7) 0.3 x10^3/uL (0.0-0.7) Basophils # (Auto) 0.1 x10^3/uL (0.0-0.2) 0.1 x10^3/uL (0.0-0.2) Sodium Level 138 mmol/L (136-145) 144 mmol/L (136-145) Potassium Level 4.1 mmol/L (3.5-5.1) 3.7 mmol/L (3.5-5.1) Chloride Level 100 mmol/L (98-107) 109 mmol/L (98-107) Carbon Dioxide Level 24 mmol/L (21-32) 25 mmol/L (21-32) Anion Gap 14 (6-14) 10 (6-14) Blood Urea Nitrogen 30 mg/dL (7-20) 14 mg/dL (7-20) Creatinine 1.9 mg/dL (0.6-1.0) 0.8 mg/dL (0.6-1.0) Estimated GFR (Cockcroft-Gault) 31.7 86.1 BUN/Creatinine Ratio 16 (6-20) Glucose Level 105 mg/dL (70-99) 114 mg/dL (70-99) Lactic Acid Level 1.0 mmol/L (0.4-2.0) Calcium Level 9.4 mg/dL (8.5-10.1) 8.3 mg/dL (8.5-10.1) Magnesium Level 1.5 mg/dL (1.8-2.4) Total Bilirubin 0.4 mg/dL (0.2-1.0) Aspartate Amino Transf (AST/SGOT) 41 U/L (15-37) Alanine Aminotransferase (ALT/SGPT) 19 U/L (14-59) Alkaline Phosphatase 112 U/L (46-116) Creatine Kinase 858 U/L (26-192) Creatine Kinase MB (Mass) 3.8 ng/mL (0.0-3.6) Creatine Kinase MB Relative Index 0.4 % (0-4) Troponin I Quantitative < 0.017 ng/mL (0.000-0.055) Total Protein 8.2 g/dL (6.4-8.2) Albumin 3.4 g/dL (3.4-5.0) Albumin/Globulin Ratio 0.7 (1.0-1.7) Ethyl Alcohol Level < 10 mg/dL (0-10) Urine Collection Type U cath Urine Color Yellow Urine Clarity Clear Urine pH 5.0 Urine Specific [place] >=1.030 Urine Protein 30 mg/dL (NEG-TRACE) Urine Glucose (UA) Negative mg/dL (NEG) Urine Ketones (Stick) Trace mg/dL (NEG) Urine Blood Negative (NEG) Urine Nitrite Negative (NEG) Urine Bilirubin Moderate (NEG) Urine Urobilinogen Dipstick 0.2 mg/dL (0.2 mg/dL) Urine Leukocyte Esterase Negative (NEG) Urine RBC Rare /HPF (0-2) Urine WBC Rare /HPF (0-4) Urine Squamous Epithelial Cells Few /LPF Urine Bacteria 0 /HPF (0-FEW) Urine Hyaline Casts Moderate /HPF Urine Mucus Mod /LPF Urine Opiates Screen Pos (NEG) Urine Methadone Screen Neg (NEG) Urine Barbiturates Neg (NEG) Urine Phencyclidine Screen Neg (NEG) Urine Amphetamine/Methamphetamine Neg (NEG) Urine Benzodiazepines Screen Neg (NEG) Urine Cocaine Screen Neg (NEG) Urine Cannabinoids Screen Neg (NEG) Urine Ethyl Alcohol Neg (NEG) Laboratory Tests Test 08/25/18 17:31 08/25/18 18:37 08/25/18 19:15 08/26/18 04:30 Glucose (Fingerstick) 92 mg/dL (70-99) White Blood Count 6.5 x10^3/uL (4.0-11.0) 6.6 x10^3/uL (4.0-11.0) Red Blood Count 4.11 x10^6/uL (3.50-5.40) 3.56 x10^6/uL (3.50-5.40) Hemoglobin 11.1 g/dL (12.0-15.5) 9.8 g/dL (12.0-15.5) Hematocrit 34.6 % (36.0-47.0) 29.8 % (36.0-47.0) Mean Corpuscular Volume 84 fL (79-100) 84 fL (79-100) Mean Corpuscular Hemoglobin 27 pg (25-35) 28 pg (25-35) Mean Corpuscular Hemoglobin Concent 32 g/dL (31-37) 33 g/dL (31-37) Red Cell Distribution Width 15.1 % (11.5-14.5) 14.7 % (11.5-14.5) Platelet Count 308 x10^3/uL (140-400) 268 x10^3/uL (140-400) Neutrophils (%) (Auto) 69 % (31-73) 63 % (31-73) Lymphocytes (%) (Auto) 17 % (24-48) 20 % (24-48) Monocytes (%) (Auto) 9 % (0-9) 11 % (0-9) Eosinophils (%) (Auto) 4 % (0-3) 5 % (0-3) Basophils (%) (Auto) 1 % (0-3) 1 % (0-3) Neutrophils # (Auto) 4.5 x10^3uL (1.8-7.7) 4.2 x10^3uL (1.8-7.7) Lymphocytes # (Auto) 1.1 x10^3/uL (1.0-4.8) 1.3 x10^3/uL (1.0-4.8) Monocytes # (Auto) 0.6 x10^3/uL (0.0-1.1) 0.8 x10^3/uL (0.0-1.1) Eosinophils # (Auto) 0.2 x10^3/uL (0.0-0.7) 0.3 x10^3/uL (0.0-0.7) Basophils # (Auto) 0.1 x10^3/uL (0.0-0.2) 0.1 x10^3/uL (0.0-0.2) Sodium Level 138 mmol/L (136-145) 144 mmol/L (136-145) Potassium Level 4.1 mmol/L (3.5-5.1) 3.7 mmol/L (3.5-5.1) Chloride Level 100 mmol/L (98-107) 109 mmol/L (98-107) Carbon Dioxide Level 24 mmol/L (21-32) 25 mmol/L (21-32) Anion Gap 14 (6-14) 10 (6-14) Blood Urea Nitrogen 30 mg/dL (7-20) 14 mg/dL (7-20) Creatinine 1.9 mg/dL (0.6-1.0) 0.8 mg/dL (0.6-1.0) Estimated GFR (Cockcroft-Gault) 31.7 86.1 BUN/Creatinine Ratio 16 (6-20) Glucose Level 105 mg/dL (70-99) 114 mg/dL (70-99) Lactic Acid Level 1.0 mmol/L (0.4-2.0) Calcium Level 9.4 mg/dL (8.5-10.1) 8.3 mg/dL (8.5-10.1) Magnesium Level 1.5 mg/dL (1.8-2.4) Total Bilirubin 0.4 mg/dL (0.2-1.0) Aspartate Amino Transf (AST/SGOT) 41 U/L (15-37) Alanine Aminotransferase (ALT/SGPT) 19 U/L (14-59) Alkaline Phosphatase 112 U/L (46-116) Creatine Kinase 858 U/L (26-192) Creatine Kinase MB (Mass) 3.8 ng/mL (0.0-3.6) Creatine Kinase MB Relative Index 0.4 % (0-4) Troponin I Quantitative < 0.017 ng/mL (0.000-0.055) Total Protein 8.2 g/dL (6.4-8.2) Albumin 3.4 g/dL (3.4-5.0) Albumin/Globulin Ratio 0.7 (1.0-1.7) Ethyl Alcohol Level < 10 mg/dL (0-10) Urine Collection Type U cath Urine Color Yellow Urine Clarity Clear Urine pH 5.0 Urine Specific [place] >=1.030 Urine Protein 30 mg/dL (NEG-TRACE) Urine Glucose (UA) Negative mg/dL (NEG) Urine Ketones (Stick) Trace mg/dL (NEG) Urine Blood Negative (NEG) Urine Nitrite Negative (NEG) Urine Bilirubin Moderate (NEG) Urine Urobilinogen Dipstick 0.2 mg/dL (0.2 mg/dL) Urine Leukocyte Esterase Negative (NEG) Urine RBC Rare /HPF (0-2) Urine WBC Rare /HPF (0-4) Urine Squamous Epithelial Cells Few /LPF Urine Bacteria 0 /HPF (0-FEW) Urine Hyaline Casts Moderate /HPF Urine Mucus Mod /LPF Urine Opiates Screen Pos (NEG) Urine Methadone Screen Neg (NEG) Urine Barbiturates Neg (NEG) Urine Phencyclidine Screen Neg (NEG) Urine Amphetamine/Methamphetamine Neg (NEG) Urine Benzodiazepines Screen Neg (NEG) Urine Cocaine Screen Neg (NEG) Urine Cannabinoids Screen Neg (NEG) Urine Ethyl Alcohol Neg (NEG) JOSTIN BRYANT MD Aug 26, 2018 16:38
[2018-08-26] MEDS ORDERED: LIDO120C7 TP (18:13)
[2018-08-26] MEDS ORDERED: OMEP40CA5 PO (18:13)
[2018-08-26] MEDS ORDERED: TIOT18CA IH (18:13)
[2018-08-26] MEDS ORDERED: METO50TA6 PO (18:13)
[2018-08-26] MEDS ORDERED: CHOL10003 PO (18:13)
[2018-08-26] MEDS ORDERED: PROAIR RESPICL90 MCG IH (18:13)
[2018-08-26] MEDS ORDERED: ATOR10TA60 PO (18:13)
[2018-08-26] MEDS ORDERED: FLUP25VI2 IM (18:13)
[2018-08-26] MEDS ORDERED: QUET300T67 PO (18:13)
[2018-08-26] MEDS ORDERED: [UNRECOGNIZED DRUG - CODE] PO (18:13)
[2018-08-26] MEDS ORDERED: DICL1TAB PO (18:13)
[2018-08-26] MEDS ORDERED: LOPERAMIDE 2 MG CAPSULE PO PRN (18:15)
[2018-08-26 19:12] VITALS: BP 142/68
[2018-08-26] MEDS ORDERED: DICLOFENAC SODIUM PO PRN (21:00)
[2018-08-26] MEDS ORDERED: NON FORMULARY ITEM (Albuterol Sulfate (Proair Respiclick) 1 PUFF) IH PRN (21:00)
[2018-08-26] MEDS ORDERED: [UNRECOGNIZED DRUG - OTHER] PO PRN (21:00)
[2018-08-26] MEDS: DICLOFENAC SODIUM 1% TOPICAL GEL 100GM TUBE. TP SCH (21:00)
[2018-08-26] MEDS ORDERED: MISOPROSTOL PO PRN (21:00)
[2018-08-26] MEDS: ATORVASTATIN CALCIUM 10 MG TABLET. PO SCH (21:13)
[2018-08-26] MEDS: NAPROXEN 500 MG TABLET PO SCH (21:13)
[2018-08-26] MEDS: METOPROLOL TART IMMED RELEASE 50 MG TABLET. PO SCH (21:14)
[2018-08-26] MEDS: QUEtiapine 300 MG TAB.ER.24H. PO SCH (21:14)
[2018-08-26 23:26] VITALS: BP 139/64
[2018-08-27 03:01] VITALS: BP 116/71
[2018-08-27 07:00] VITALS: BP 148/70
[2018-08-27] MEDS: PANTOPRAZOLE 40 MG TABLET.DR. PO SCH (08:40)
[2018-08-27] MEDS: NAPROXEN 500 MG TABLET PO SCH ×2 (08:41→16:51)
[2018-08-27] MEDS: amLODIPine BESYLATE 10 MG TABLET PO SCH (08:41)
[2018-08-27] MEDS: CHOLECALCIFEROL (VITAMIN D3) 1,000 UNIT TABLET PO SCH (08:42)
[2018-08-27] MEDS: METOPROLOL TART IMMED RELEASE 50 MG TABLET. PO SCH ×2 (08:42→20:34)
[2018-08-27] MEDS: LOSARTAN POTASSIUM 50 MG TABLET. PO SCH (08:42)
[2018-08-27] MEDS: DICLOFENAC SODIUM 1% TOPICAL GEL 100GM TUBE. TP SCH ×4 (08:45→20:34)
--- NOTE | 2018-08-27 10:39 | PDOC ---
PROGRESS NOTES History of Present Illness History of Present Illness Assessment/Plan Assessment/Plan IMPRESSION 1. POSSIBLE ACCIDENTAL NARCOTIC OVERDOSE/ TRAMADOL/ HYDROCODONE 2. LEFT KNEE PAIN //Old healing fracture is seen of the proximal diaphysis of the fibula 3. ALTERED MENTATION 4. DEHYDRATION 5. COPD 6. OSTEOARTHRITIS///Left knee osteoarthritis.PAIN NOT IMPROVED Impaired fnctnl mobility * Strength * ROM * Balance * Age * Knowledge-safe techniques 7. ARF/ VASOMOTOR NEPHROPATHY 8. LEFT HIP PAIN 9. 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 11. Slurred speech, intermittent chronic for months. 12. Cognitive impairment. PLAN TELE NEUROCHECKS Q 4 HRS IV FLUID SUPPORT FOLLOW RENAL FX GLUCOSE MGT NEUROLOGY CONSULT FALL PRECAUTIONS NEEDS SNF ON DISMISSAL HIGH RISK PT AT RISK FOR SUDDEN DUE TO NARCOTIC USE// REC STOPPING ALL NARCOTICS PER MY CHART REVIEW Problem List (body system elements) * Impaired fnctnl mobility * Strength * ROM * Balance * Age * Knowledge-safe techniques * Skin Integrity * Pain Clinical Presentation * Evolving Evaluation Complexity Level * Moderate Complexity Pt/caregiver agrees with plan of care/goals * Yes Patient condition at conclusion of therapy * Pt in chair * Personal alarm on * Call light in reach * Phone in reach * PtIn no apparent distress * Pt denies further needs Communicated Patient Care With (Name, Title) * Nola RN; Merly, OT Goal 1 - Bed Mobility Assistance Required * Independent Goal 2 - Transfers Assistance Required * Independent Goal 2 - Transfer Type * Sit to Stand * Stand-Step Goal 3 - Ambulation Assistance Required * Independent Goal 3 - Ambulation Distance * 100' Goal 3 - Ambulation Device * Roller Walker Treatment Plan * Therapeutic Exercise * Bed Mobility Training * Transfer training * Gait Training * Body Mechanics Training * Dynamic Balance Training Discharge Recommendations * Half-Way Unit Vitals Vitals Vital Signs Date Time Temp Pulse Resp B/P (MAP) Pulse Ox O2 Delivery O2 Flow Rate FiO2 08/27/18 08:42 104 148/70 08/27/18 07:00 98.9 96 Room Air 98.9 08/27/18 03:01 16 08/26/18 20:12 2.0 Physical Exam General: Alert, Cooperative, No acute distress, mild distress, Other (answered a few questions, then went back to sleep) Heart: Regular rate, Normal S1, Normal S2, No murmurs Lungs: Clear Abdomen: Normal bowel sounds, Soft, No tenderness Extremities: No cyanosis, Other (the left knee has mild diffuse tenderness, slight diffuse enlargement consistent with arthritis, no erythema or warmth or effusion. There is a knee immobilizer stabilizing the knee. There seems to be valgus pseudo-laxity (chronic, not from acute injury). She has intact sensation at the foot and able to dorsiflex and plantarflex. 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) Skin: No breakdown, No significant lesion Assessment and Plan Assessmemt and Plan Problems Medical Problems: (1) Decreased level of consciousness Status: Acute (2) Left knee pain Status: Acute Comment Review of Relevant I have reviewed the following items della (where applicable) has been applied. Labs Laboratory Tests Test 08/25/18 17:31 08/25/18 18:37 08/25/18 19:15 08/26/18 04:30 Glucose (Fingerstick) 92 mg/dL (70-99) White Blood Count 6.5 x10^3/uL (4.0-11.0) 6.6 x10^3/uL (4.0-11.0) Red Blood Count 4.11 x10^6/uL (3.50-5.40) 3.56 x10^6/uL (3.50-5.40) Hemoglobin 11.1 g/dL (12.0-15.5) 9.8 g/dL (12.0-15.5) Hematocrit 34.6 % (36.0-47.0) 29.8 % (36.0-47.0) Mean Corpuscular Volume 84 fL (79-100) 84 fL (79-100) Mean Corpuscular Hemoglobin 27 pg (25-35) 28 pg (25-35) Mean Corpuscular Hemoglobin Concent 32 g/dL (31-37) 33 g/dL (31-37) Red Cell Distribution Width 15.1 % (11.5-14.5) 14.7 % (11.5-14.5) Platelet Count 308 x10^3/uL (140-400) 268 x10^3/uL (140-400) Neutrophils (%) (Auto) 69 % (31-73) 63 % (31-73) Lymphocytes (%) (Auto) 17 % (24-48) 20 % (24-48) Monocytes (%) (Auto) 9 % (0-9) 11 % (0-9) Eosinophils (%) (Auto) 4 % (0-3) 5 % (0-3) Basophils (%) (Auto) 1 % (0-3) 1 % (0-3) Neutrophils # (Auto) 4.5 x10^3uL (1.8-7.7) 4.2 x10^3uL (1.8-7.7) Lymphocytes # (Auto) 1.1 x10^3/uL (1.0-4.8) 1.3 x10^3/uL (1.0-4.8) Monocytes # (Auto) 0.6 x10^3/uL (0.0-1.1) 0.8 x10^3/uL (0.0-1.1) Eosinophils # (Auto) 0.2 x10^3/uL (0.0-0.7) 0.3 x10^3/uL (0.0-0.7) Basophils # (Auto) 0.1 x10^3/uL (0.0-0.2) 0.1 x10^3/uL (0.0-0.2) Sodium Level 138 mmol/L (136-145) 144 mmol/L (136-145) Potassium Level 4.1 mmol/L (3.5-5.1) 3.7 mmol/L (3.5-5.1) Chloride Level 100 mmol/L (98-107) 109 mmol/L (98-107) Carbon Dioxide Level 24 mmol/L (21-32) 25 mmol/L (21-32) Anion Gap 14 (6-14) 10 (6-14) Blood Urea Nitrogen 30 mg/dL (7-20) 14 mg/dL (7-20) Creatinine 1.9 mg/dL (0.6-1.0) 0.8 mg/dL (0.6-1.0) Estimated GFR (Cockcroft-Gault) 31.7 86.1 BUN/Creatinine Ratio 16 (6-20) Glucose Level 105 mg/dL (70-99) 114 mg/dL (70-99) Lactic Acid Level 1.0 mmol/L (0.4-2.0) Calcium Level 9.4 mg/dL (8.5-10.1) 8.3 mg/dL (8.5-10.1) Magnesium Level 1.5 mg/dL (1.8-2.4) Total Bilirubin 0.4 mg/dL (0.2-1.0) Aspartate Amino Transf (AST/SGOT) 41 U/L (15-37) Alanine Aminotransferase (ALT/SGPT) 19 U/L (14-59) Alkaline Phosphatase 112 U/L (46-116) Creatine Kinase 858 U/L (26-192) Creatine Kinase MB (Mass) 3.8 ng/mL (0.0-3.6) Creatine Kinase MB Relative Index 0.4 % (0-4) Troponin I Quantitative < 0.017 ng/mL (0.000-0.055) Total Protein 8.2 g/dL (6.4-8.2) Albumin 3.4 g/dL (3.4-5.0) Albumin/Globulin Ratio 0.7 (1.0-1.7) Ethyl Alcohol Level < 10 mg/dL (0-10) Urine Collection Type U cath Urine Color Yellow Urine Clarity Clear Urine pH 5.0 Urine Specific [place] >=1.030 Urine Protein 30 mg/dL (NEG-TRACE) Urine Glucose (UA) Negative mg/dL (NEG) Urine Ketones (Stick) Trace mg/dL (NEG) Urine Blood Negative (NEG) Urine Nitrite Negative (NEG) Urine Bilirubin Moderate (NEG) Urine Urobilinogen Dipstick 0.2 mg/dL (0.2 mg/dL) Urine Leukocyte Esterase Negative (NEG) Urine RBC Rare /HPF (0-2) Urine WBC Rare /HPF (0-4) Urine Squamous Epithelial Cells Few /LPF Urine Bacteria 0 /HPF (0-FEW) Urine Hyaline Casts Moderate /HPF Urine Mucus Mod /LPF Urine Opiates Screen Pos (NEG) Urine Methadone Screen Neg (NEG) Urine Barbiturates Neg (NEG) Urine Phencyclidine Screen Neg (NEG) Urine Amphetamine/Methamphetamine Neg (NEG) Urine Benzodiazepines Screen Neg (NEG) Urine Cocaine Screen Neg (NEG) Urine Cannabinoids Screen Neg (NEG) Urine Ethyl Alcohol Neg (NEG) Medications Current Medications Sodium Chloride 1,000 ml @ 1,000 mls/hr 1X ONCE IV Last administered on at 18:44; Start 08/25/18 at 18:00; Stop 08/25/18 at 18:59; Status DC Sodium Chloride 1,000 ml @ 500 mls/hr 1X ONCE IV Last administered on 23:18; Start 08/25/18 at 23:15; Stop 08/26/18 at 01:14; Status DC Sodium Chloride 1,000 ml @ 125 mls/hr 1X ONCE IV Last administered on 23:17; Start 08/25/18 at 23:30; Stop 08/26/18 at 07:29; Status DC Magnesium Sulfate 50 ml @ 25 mls/hr 1X ONCE IV Last administered on 08/25/18 23:18; Start 08/25/18 at 23:30; Stop 08/26/18 at 01:29; Status DC Acetaminophen (Tylenol) 650 mg PRN Q6HRS PRN PO MILD PAIN; Start 08/26/18 at 15 :30 Loperamide HCl (Imodium) 2 mg PRN Q15MIN PRN PO DIARRHEA Last administered on 18:36; Start 08/26/18 at 18:15 Atorvastatin Calcium (Lipitor) 10 mg HS PO Last administered on 08/26/18 21:13 ; Start 08/26/18 at 21:00 Vitamin D (Vitamin D3) 1,000 unit DAILY PO Last administered on 08/27/18 08:42 ; Start 08/27/18 at 09:00 Diclofenac Sodium (Voltaren) 1 ramona QID TP Last administered on 08/27/18 08:45 ; Start 08/26/18 at 21:00 Metoprolol Tartrate (Lopressor) 50 mg BID PO Last administered on 08/27/18 08: 42; Start 08/26/18 at 21:00 Quetiapine Fumarate (SEROquel XR) 600 mg HS PO Last administered on 08/26/18 21:14; Start 08/26/18 at 21:00 Non-Formulary Medication (Albuterol Sulfate (Proair Respiclick)) 1 puff PRN Q4HRS PRN IH SHORTNESS OF BREATH; Start 08/26/18 at 21:00; Status UNV Amlodipine Besylate (Norvasc) 10 mg DAILY PO Last administered on 08/27/18 08: 41; Start 08/27/18 at 09:00 Non-Formulary Medication (Diclofenac Sodium/ Misoprostol (Diclofenac-Misoprost 75-0.2 Tb)) 1 each PRN BID PRN PO PAIN; Start 08/26/18 at 21:00; Status UNV Naproxen (Naprosyn) 500 mg BIDWMEALS PO Last administered on 08/27/18at 08:41; Start 08/26/18 at 21:15 Pantoprazole Sodium (Protonix) 40 mg DAILYAC PO Last administered on 08/27/18at 08:40; Start 08/27/18 at 07:30 Albuterol Sulfate (Ventolin Neb Soln) 2.5 mg PRN Q4HRS PRN NEB SHORTNESS OF BREATH; Start 08/26/18 at 21:15 Losartan Potassium (Cozaar) 100 mg DAILY PO Last administered on 08/27/18at 08: 42; Start 08/27/18 at 09:00 Active Scripts Active Medrol (Methylprednisolone) 4 Mg Tab.ds.pk 1 Pkg PO UD [place] 5-325 Tablet (Acetaminophen/Hydrocodone Bitart) 1 Each Tablet 1 Tab PO Q8HRS PRN Voltaren (Diclofenac Sodium) 100 Gm Gel..gram. 1 Gm TP QID Ultram (Tramadol Hcl) 50 Mg Tablet 50 Mg PO Q6H PRN Naproxen 500 Mg Tablet. 500 Mg PO BID Reported Spiriva (Tiotropium [place]) 18 Mcg Cap.w.dev 2 Inh IH DAILY Quetiapine Fumarate ER (Quetiapine Fumarate) 300 Mg Tab.er.24h 2 Tab PO HS Omeprazole 40 Mg Capsule.dr 1 Cap PO HS Metoprolol Tartrate 50 Mg Tablet 1 Tab PO BID Lidocaine HCl 120 Gm Cream..g. 120 Gm TP PRN TID PRN Fluphenazine Decanoate 25 Mg/1 Ml Vial 1.5 Ml IM Q4WK Diclofenac-Misoprost 75-0.2 Tb (Diclofenac Sodium/Misoprostol) 1 Each Tab.ir.dr 1 Each PO PRN BID PRN Vitamin D3 (Cholecalciferol (Vitamin D3)) 1,000 Unit Tablet 1 Tab PO DAILY Atorvastatin Calcium 10 Mg Tablet 10 Mg PO HS Amlodipine-Valsartan 10-320 mg (Amlodipine/Valsartan) 1 Each Tablet 1 Each PO DAILY Proair Respiclick (Albuterol Sulfate) 90 Mcg Aer.pow.ba 1 Puff IH PRN Q4HRS PRN Vitals/I & O Vital Sign - Last 24 Hours 08/26/18 08/26/18 08/26/18 08/26/18 10:49 15:00 19:12 20:12 Temp 98.6 98.5 98.8 98.6 98.5 98.8 Pulse 105 108 105 Resp 20 22 16 B/P (MAP) 137/70 (92) 149/80 (103) 142/68 (92) Pulse Ox 96 94 96 O2 Delivery Room Air Nasal Cannula Room Air Nasal Cannula O2 Flow Rate 2.0 2.0 2.0 08/26/18 08/26/18 08/27/18 08/27/18 21:14 23:26 03:01 07:00 Temp 98.3 98.2 98.9 98.3 98.2 98.9 Pulse 105 83 95 104 Resp 16 16 B/P (MAP) 142/68 139/64 (89) 116/71 (86) 148/70 (96) Pulse Ox 94 94 96 O2 Delivery Room Air Room Air Room Air 08/27/18 08/27/18 08/27/18 08:41 08:42 08:42 Pulse 104 104 104 B/P (MAP) 148/70 148/70 148/70 Intake and Output 08/26/18 08/26/18 08/27/18 14:59 22:59 06:59 Intake Total 200 ml 250 ml 200 ml Balance 200 ml 250 ml 200 ml JAYSHREE BURROWS MD Aug 27, 2018 10:39
[2018-08-27 11:00] VITALS: BP 128/67
--- NOTE | 2018-08-27 13:40 | PDOC ---
PROGRESS NOTES Assessment Assessment Metabolic encephalopathy. Narcotic use/abuse. Slurred speech, intermittent chronic for months. Cognitive impairment. Severe tricompartment osteoarthritis of left knee. Old fracture proximal diaphysis of fibula. COPD. DM. HTN. RECOMMENDATIONS/PLAN: HCT and CCT performed no acute findings. Consulted Ortho. Treat medical diseases. Avoid narcotics as possible. OT/PT. HISTORY OF THE PRESENT ILLNESS: 68-y-old AA female patient with above medical and surgical diseases and chronic intermitted speech problems for months or 2 years as she thought due to loss of teeth. She has chronic pain and has been using narcotics. She had mental status changes this time and was noted pinpoint pupils on 08/25/18. neurology was called for consultation on 08/26/18 for MS changes. Past Medical History Arthritis, COPD, Diabetes-Type II, Hypertension PAST SURGERY HISTORY: Tubal ligation, RIGHT BREAST SX, CATARACTS SX ALLERGY: Unknown MEDICATIONS: Refer to [facility] HISTORY: HTN. SOCIAL HISTORY: Lives alone. Denies smoking, drinking, and illicit drug use. She uses narcotics. REVIEW OF SYSTEMS: Constitutional: No malnutrition, weight loss, cachexia. Head: No traumatic brain or head injury. Skin: No edema, or rash. Ear: No infection. Eyes: No vision loss or color blindness. Nose: No bleeding or purulent discharges. Hearing: Hearing decrease. Neck: No injury. Breast: No history of cancer, masses,or discharges. Cardiac: HTN. Pulmonary: COPD. GI: No GI ulcer, GI bleeding. Urinary/genital: UTI. Endocrinologic: Diabetes Mellitus. Skeletomuscular: left knee pain. Neurological: see HP. Psychiatric: Narcotics use/abuse. Otherwise, not [id number] review of systems. PHYSICAL EXAMINATION: General appearance is in chronic on subacute distress. HEENT: Normocephalic and nontraumatic. Eyes, nose, ears, and throat are unremarkable. Neck is supple. No lymphadenopathy. No crepitus. Cardiovascular: S1, S2, regular rate and rhythm. Pulmonary: Clear to auscultation bilaterally. Abdomen: Bowel sounds are positive. Abdomen is soft, nontender, and nondistended. Extremities: No rash, lesions, or edema. No restriction of range of motion NEUROLOGICAL EXAMINATION: Awake. Oriented partially to time, place and person. Her reaction was slow. PERRL. Pupils 2 mm. EOMI. CN: no focal findings. Muscle tone: within normal. Muscle strength: 5 UE and right LE, left knee pain with restriction of range of motion. DTR:1- 2 Plantar reflex: Neutral response bilaterally Gait: not able to walk w/o assistance due to left knee pain. Sensory exam: no abnormal findings. No cerebellar signs elicited. F-T-N test fine. Objective Objective Vital Signs Date Time Temp Pulse Resp B/P (MAP) Pulse Ox O2 Delivery O2 Flow Rate FiO2 08/27/18 11:00 98.0 98 18 128/67 (87) 95 Room Air 98.0 08/26/18 20:12 2.0 Intake and Output 08/27/18 06:59 Intake Total 650 ml Balance 650 ml Intake Oral 650 ml # Voids 9 # Bowel Movements 5 Vitals Signs Vitals VS - Last 72 Hours, by Label Date Time Temp Pulse Resp B/P (MAP) Pulse Ox O2 Delivery O2 Flow Rate FiO2 08/27/18 11:00 98.0 98 18 128/67 (87) 95 Room Air 98.0 08/27/18 08:42 104 148/70 08/27/18 08:42 104 148/70 08/27/18 08:41 104 148/70 08/27/18 07:00 98.9 104 148/70 (96) 96 Room Air 98.9 08/27/18 03:01 98.2 95 16 116/71 (86) 94 Room Air 98.2 08/26/18 23:26 98.3 83 16 139/64 (89) 94 Room Air 98.3 08/26/18 21:14 105 142/68 08/26/18 20:12 Nasal Cannula 2.0 08/26/18 19:12 98.8 105 16 142/68 (92) 96 Room Air 98.8 08/26/18 15:00 98.5 108 22 149/80 (103) 94 Nasal Cannula 2.0 98.5 08/26/18 10:49 98.6 105 20 137/70 (92) 96 Room Air 2.0 98.6 08/26/18 08:00 Nasal Cannula 2.0 08/26/18 07:00 98.0 112 20 132/76 (94) 90 Room Air 2.0 98.0 Medication Medications Current Medications Acetaminophen (Tylenol) 650 mg PRN Q6HRS PRN PO MILD PAIN; Start 08/26/18 at 15 :30 Albuterol Sulfate (Ventolin Neb Soln) 2.5 mg PRN Q4HRS PRN NEB SHORTNESS OF BREATH; Start 08/26/18 at 21:15 Amlodipine Besylate (Norvasc) 10 mg DAILY PO Last administered on 08/27/18 08: 41; Start 08/27/18 at 09:00 Atorvastatin Calcium (Lipitor) 10 mg HS PO Last administered on 08/26/18 21:13 ; Start 08/26/18 at 21:00 Diclofenac Sodium (Voltaren) 1 ramona QID TP Last administered on 08/27/18 13:23 ; Start 08/26/18 at 21:00 Loperamide HCl (Imodium) 2 mg PRN Q15MIN PRN PO DIARRHEA Last administered on 18:36; Start 08/26/18 at 18:15 Losartan Potassium (Cozaar) 100 mg DAILY PO Last administered on 08/27/18 08: 42; Start 08/27/18 at 09:00 Metoprolol Tartrate (Lopressor) 50 mg BID PO Last administered on 08/27/18 08: 42; Start 08/26/18 at 21:00 Naproxen (Naprosyn) 500 mg BIDWMEALS PO Last administered on 08/27/18 08:41; Start 08/26/18 at 21:15 Non-Formulary Medication (Albuterol Sulfate (Proair Respiclick)) 1 puff PRN Q4HRS PRN IH SHORTNESS OF BREATH; Start 08/26/18 at 21:00; Status UNV Non-Formulary Medication (Diclofenac Sodium/ Misoprostol (Diclofenac-Misoprost 75-0.2 Tb)) 1 each PRN BID PRN PO PAIN; Start 08/26/18 at 21:00; Status UNV Pantoprazole Sodium (Protonix) 40 mg DAILYAC PO Last administered on 08/27/18 08:40; Start 08/27/18 at 07:30 Quetiapine Fumarate (SEROquel XR) 600 mg HS PO Last administered on 08/26/18 21:14; Start 08/26/18 at 21:00 Vitamin D (Vitamin D3) 1,000 unit DAILY PO Last administered on 3/14/19at 08:42 ; Start 08/27/18 at 09:00 Comment Review of Relevant I have reviewed the following items della (where applicable) has been applied. JOSTIN BRYANT MD Aug 27, 2018 13:40
--- NOTE | 2018-08-27 13:44 | NUR ---
SS following up with discharge planning. SS contacted [facility], , from [facility]. [facility] providing private duty services and oxygen in the home and will continue to follow in the home. Pt expressing want to return home. SS discussed with pt's RN. SS will fax clinical to [facility]. Current disposition is to return to home with [facility].
[2018-08-27 15:00] VITALS: BP 141/61
[2018-08-27] MEDS: ALBUTEROL SULFATE 2.5 MG/3 ML NEBU. NEB PRN (15:41)
--- NOTE | 2018-08-27 16:10 | NUR ---
SS following up with [facility] and notified them that physician is adamant about pt discharging to facility. HOSEA from [facility] reported that she was going to conference pt's PCP and the team and contact SS. SS received notification from HOSEA at [facility] that she has spoken with pt's PCP and [facility] will approve facility placement. HOSEA from [facility] reported that she contacted pt's son and received consent and requested that referral be sent to [facility], ; fax [phone]. SS phoned and faxed referral to [facility] as requested. HOSEA from [facility] reported that she will make initial contact with [facility] and would notify SS if accepted or if another facility needed to be considered. Pt's RN notified.
[2018-08-27 19:17] VITALS: BP 133/79
[2018-08-27] MEDS: ATORVASTATIN CALCIUM 10 MG TABLET. PO SCH (20:32)
[2018-08-27] MEDS: QUEtiapine 300 MG TAB.ER.24H. PO SCH (20:33)
[2018-08-27 22:20] VITALS: BP 165/80
[2018-08-28 02:28] VITALS: BP 141/66
[2018-08-28 03:55] LABS: BASO # 0.1 x10^3/uL (0.0-0.2); BASO % 1 % (0-3); EOS # 0.4 x10^3/uL (0.0-0.7); EOS % 6 % (0-3); HEMATOCRIT 28.1 % (36.0-47.0); HEMOGLOBIN 9.1 g/dL (12.0-15.5); LYMPH # 2.2 x10^3/uL (1.0-4.8); LYMPH % 37 % (24-48); MEAN CORPUSCULAR HEMOGLOBIN 27 pg (25-35); MEAN CORPUSCULAR HGB CONC 32 g/dL (31-37); MEAN CORPUSCULAR VOLUME 84 fL (79-100); MONO # 0.6 x10^3/uL (0.0-1.1); MONO % 10 % (0-9); NEUT # 2.7 x10^3uL (1.8-7.7); NEUT % 46 % (31-73); PLATELET COUNT 252 x10^3/uL (140-400); RED BLOOD COUNT 3.35 x10^6/uL (3.50-5.40); RED CELL DISTRIBUTION WIDTH 14.7 % (11.5-14.5); WHITE BLOOD COUNT 5.9 x10^3/uL (4.0-11.0)
[2018-08-28 04:35] LABS: ALBUMIN 2.4 g/dL (3.4-5.0); ALBUMIN/GLOBULIN RATIO 0.7 (1.0-1.7); CALCIUM 8.5 mg/dL (8.5-10.1); CREATININE 0.7 mg/dL (0.6-1.0); GFR 100.4; POTASSIUM 3.6 mmol/L (3.5-5.1); TOTAL BILIRUBIN 0.2 mg/dL (0.2-1.0)
[2018-08-28 06:48] VITALS: BP 143/56
[2018-08-28] MEDS: amLODIPine BESYLATE 10 MG TABLET PO SCH (08:32)
[2018-08-28] MEDS: METOPROLOL TART IMMED RELEASE 50 MG TABLET. PO SCH (08:32)
[2018-08-28] MEDS: NAPROXEN 500 MG TABLET PO SCH (08:32)
[2018-08-28] MEDS: CHOLECALCIFEROL (VITAMIN D3) 1,000 UNIT TABLET PO SCH (08:32)
[2018-08-28] MEDS: PANTOPRAZOLE 40 MG TABLET.DR. PO SCH (08:32)
[2018-08-28] MEDS: LOSARTAN POTASSIUM 50 MG TABLET. PO SCH (08:33)
[2018-08-28] MEDS: DICLOFENAC SODIUM 1% TOPICAL GEL 100GM TUBE. TP SCH ×3 (09:00→13:48)
--- NOTE | 2018-08-28 10:17 | PDOC ---
PROGRESS NOTES History of Present Illness History of Present Illness Assessment/Plan Assessment/Plan IMPRESSION 1. ACCIDENTAL NARCOTIC OVERDOSE/ TRAMADOL/ HYDROCODONE due to cognitive decline 2. LEFT KNEE PAIN //Old healing fracture is seen of the proximal diaphysis of the fibula 3. ALTERED MENTATION 4. DEHYDRATION 5. COPD 6. OSTEOARTHRITIS///Left knee osteoarthritis.PAIN NOT IMPROVED Impaired fnctnl mobility * Strength * ROM * Balance * Age * Knowledge-safe techniques 7. ARF/ VASOMOTOR NEPHROPATHY 8. LEFT HIP PAIN 9. 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 11. Slurred speech, intermittent chronic for months. 12. Cognitive impairment.mod-severe 13. SEVERE GAIT INSTABILITY NOT IMPROVED PLAN TELE NEUROCHECKS Q 4 HRS IV FLUID SUPPORT FOLLOW RENAL FX GLUCOSE MGT NEUROLOGY CONSULT FALL PRECAUTIONS PT/OT PLACEMENT SNG NEEDS SNF ON DISMISSAL d/w center medical and lab director for [facility] by phone, will approve snf bed D/W RN HIGH RISK PT AT RISK FOR SUDDEN DUE TO NARCOTIC USE// REC STOPPING ALL NARCOTICS PER MY CHART REVIEW Problem List (body system elements) * Impaired fnctnl mobility * Strength * ROM * Balance * Age * Knowledge-safe techniques * Skin Integrity * Pain Clinical Presentation * Evolving Evaluation Complexity Level * Moderate Complexity Pt/caregiver agrees with plan of care/goals * Yes Patient condition at conclusion of therapy * Pt in chair * Personal alarm on * Call light in reach * Phone in reach * PtIn no apparent distress * Pt denies further needs Communicated Patient Care With (Name, Title) * Nola RN; Merly OT Goal 1 - Bed Mobility Assistance Required * Independent Goal 2 - Transfers Assistance Required * Independent Goal 2 - Transfer Type * Sit to Stand * Stand-Step Goal 3 - Ambulation Assistance Required * Independent Goal 3 - Ambulation Distance * 100' Goal 3 - Ambulation Device * Roller Walker Treatment Plan * Therapeutic Exercise * Bed Mobility Training * Transfer training * Gait Training * Body Mechanics Training * Dynamic Balance Training Discharge Recommendations * Correction Unit Vitals Vitals Vital Signs Date Time Temp Pulse Resp B/P (MAP) Pulse Ox O2 Delivery O2 Flow Rate FiO2 08/28/18 08:33 100 143/56 08/28/18 07:37 Nasal Cannula 2.0 08/28/18 06:48 98.4 18 94 98.4 Physical Exam General: Alert, Oriented X3, Cooperative, No acute distress, mild distress, Other (answered a few questions, then went back to sleep) Heart: Regular rate, Normal S1, Normal S2, No murmurs Lungs: Clear Abdomen: Normal bowel sounds, Soft, No tenderness Extremities: No cyanosis, Other (the left knee has mild diffuse tenderness, slight diffuse enlargement consistent with arthritis, no erythema or warmth or effusion. There is a knee immobilizer stabilizing the knee. There seems to be valgus pseudo-laxity (chronic, not from acute injury). She has intact sensation at the foot and able to dorsiflex and plantarflex. 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) Skin: No breakdown, No significant lesion Labs LABS Laboratory Tests Test 08/28/18 03:00 White Blood Count 5.9 x10^3/uL (4.0-11.0) Red Blood Count 3.35 x10^6/uL (3.50-5.40) Hemoglobin 9.1 g/dL (12.0-15.5) Hematocrit 28.1 % (36.0-47.0) Mean Corpuscular Volume 84 fL (79-100) Mean Corpuscular Hemoglobin 27 pg (25-35) Mean Corpuscular Hemoglobin Concent 32 g/dL (31-37) Red Cell Distribution Width 14.7 % (11.5-14.5) Platelet Count 252 x10^3/uL (140-400) Neutrophils (%) (Auto) 46 % (31-73) Lymphocytes (%) (Auto) 37 % (24-48) Monocytes (%) (Auto) 10 % (0-9) Eosinophils (%) (Auto) 6 % (0-3) Basophils (%) (Auto) 1 % (0-3) Neutrophils # (Auto) 2.7 x10^3uL (1.8-7.7) Lymphocytes # (Auto) 2.2 x10^3/uL (1.0-4.8) Monocytes # (Auto) 0.6 x10^3/uL (0.0-1.1) Eosinophils # (Auto) 0.4 x10^3/uL (0.0-0.7) Basophils # (Auto) 0.1 x10^3/uL (0.0-0.2) Sodium Level 144 mmol/L (136-145) Potassium Level 3.6 mmol/L (3.5-5.1) Chloride Level 108 mmol/L (98-107) Carbon Dioxide Level 27 mmol/L (21-32) Anion Gap 9 (6-14) Blood Urea Nitrogen 6 mg/dL (7-20) Creatinine 0.7 mg/dL (0.6-1.0) Estimated GFR (Cockcroft-Gault) 100.4 BUN/Creatinine Ratio 9 (6-20) Glucose Level 108 mg/dL (70-99) Calcium Level 8.5 mg/dL (8.5-10.1) Total Bilirubin 0.2 mg/dL (0.2-1.0) Aspartate Amino Transf (AST/SGOT) 17 U/L (15-37) Alanine Aminotransferase (ALT/SGPT) 11 U/L (14-59) Alkaline Phosphatase 71 U/L (46-116) Total Protein 6.0 g/dL (6.4-8.2) Albumin 2.4 g/dL (3.4-5.0) Albumin/Globulin Ratio 0.7 (1.0-1.7) Assessment and Plan Assessmemt and Plan Problems Medical Problems: (1) Decreased level of consciousness Status: Acute (2) Left knee pain Status: Acute Comment Review of Relevant I have reviewed the following items della (where applicable) has been applied. Labs Laboratory Tests Test 08/28/18 03:00 White Blood Count 5.9 x10^3/uL (4.0-11.0) Red Blood Count 3.35 x10^6/uL (3.50-5.40) Hemoglobin 9.1 g/dL (12.0-15.5) Hematocrit 28.1 % (36.0-47.0) Mean Corpuscular Volume 84 fL (79-100) Mean Corpuscular Hemoglobin 27 pg (25-35) Mean Corpuscular Hemoglobin Concent 32 g/dL (31-37) Red Cell Distribution Width 14.7 % (11.5-14.5) Platelet Count 252 x10^3/uL (140-400) Neutrophils (%) (Auto) 46 % (31-73) Lymphocytes (%) (Auto) 37 % (24-48) Monocytes (%) (Auto) 10 % (0-9) Eosinophils (%) (Auto) 6 % (0-3) Basophils (%) (Auto) 1 % (0-3) Neutrophils # (Auto) 2.7 x10^3uL (1.8-7.7) Lymphocytes # (Auto) 2.2 x10^3/uL (1.0-4.8) Monocytes # (Auto) 0.6 x10^3/uL (0.0-1.1) Eosinophils # (Auto) 0.4 x10^3/uL (0.0-0.7) Basophils # (Auto) 0.1 x10^3/uL (0.0-0.2) Sodium Level 144 mmol/L (136-145) Potassium Level 3.6 mmol/L (3.5-5.1) Chloride Level 108 mmol/L (98-107) Carbon Dioxide Level 27 mmol/L (21-32) Anion Gap 9 (6-14) Blood Urea Nitrogen 6 mg/dL (7-20) Creatinine 0.7 mg/dL (0.6-1.0) Estimated GFR (Cockcroft-Gault) 100.4 BUN/Creatinine Ratio 9 (6-20) Glucose Level 108 mg/dL (70-99) Calcium Level 8.5 mg/dL (8.5-10.1) Total Bilirubin 0.2 mg/dL (0.2-1.0) Aspartate Amino Transf (AST/SGOT) 17 U/L (15-37) Alanine Aminotransferase (ALT/SGPT) 11 U/L (14-59) Alkaline Phosphatase 71 U/L (46-116) Total Protein 6.0 g/dL (6.4-8.2) Albumin 2.4 g/dL (3.4-5.0) Albumin/Globulin Ratio 0.7 (1.0-1.7) Laboratory Tests Test 08/28/18 03:00 White Blood Count 5.9 x10^3/uL (4.0-11.0) Red Blood Count 3.35 x10^6/uL (3.50-5.40) Hemoglobin 9.1 g/dL (12.0-15.5) Hematocrit 28.1 % (36.0-47.0) Mean Corpuscular Volume 84 fL (79-100) Mean Corpuscular Hemoglobin 27 pg (25-35) Mean Corpuscular Hemoglobin Concent 32 g/dL (31-37) Red Cell Distribution Width 14.7 % (11.5-14.5) Platelet Count 252 x10^3/uL (140-400) Neutrophils (%) (Auto) 46 % (31-73) Lymphocytes (%) (Auto) 37 % (24-48) Monocytes (%) (Auto) 10 % (0-9) Eosinophils (%) (Auto) 6 % (0-3) Basophils (%) (Auto) 1 % (0-3) Neutrophils # (Auto) 2.7 x10^3uL (1.8-7.7) Lymphocytes # (Auto) 2.2 x10^3/uL (1.0-4.8) Monocytes # (Auto) 0.6 x10^3/uL (0.0-1.1) Eosinophils # (Auto) 0.4 x10^3/uL (0.0-0.7) Basophils # (Auto) 0.1 x10^3/uL (0.0-0.2) Sodium Level 144 mmol/L (136-145) Potassium Level 3.6 mmol/L (3.5-5.1) Chloride Level 108 mmol/L (98-107) Carbon Dioxide Level 27 mmol/L (21-32) Anion Gap 9 (6-14) Blood Urea Nitrogen 6 mg/dL (7-20) Creatinine 0.7 mg/dL (0.6-1.0) Estimated GFR (Cockcroft-Gault) 100.4 BUN/Creatinine Ratio 9 (6-20) Glucose Level 108 mg/dL (70-99) Calcium Level 8.5 mg/dL (8.5-10.1) Total Bilirubin 0.2 mg/dL (0.2-1.0) Aspartate Amino Transf (AST/SGOT) 17 U/L (15-37) Alanine Aminotransferase (ALT/SGPT) 11 U/L (14-59) Alkaline Phosphatase 71 U/L (46-116) Total Protein 6.0 g/dL (6.4-8.2) Albumin 2.4 g/dL (3.4-5.0) Albumin/Globulin Ratio 0.7 (1.0-1.7) Medications Current Medications Sodium Chloride 1,000 ml @ 1,000 mls/hr 1X ONCE IV Last administered on at 18:44; Start 08/25/18 at 18:00; Stop 08/25/18 at 18:59; Status DC Sodium Chloride 1,000 ml @ 500 mls/hr 1X ONCE IV Last administered on 23:18; Start 08/25/18 at 23:15; Stop 08/26/18 at 01:14; Status DC Sodium Chloride 1,000 ml @ 125 mls/hr 1X ONCE IV Last administered on 23:17; Start 08/25/18 at 23:30; Stop 08/26/18 at 07:29; Status DC Magnesium Sulfate 50 ml @ 25 mls/hr 1X ONCE IV Last administered on 08/25/18 23:18; Start 08/25/18 at 23:30; Stop 08/26/18 at 01:29; Status DC Acetaminophen (Tylenol) 650 mg PRN Q6HRS PRN PO MILD PAIN Last administered on 08/27/18 14:52; Start 08/26/18 at 15:30 Loperamide HCl (Imodium) 2 mg PRN Q15MIN PRN PO DIARRHEA Last administered on 18:36; Start 08/26/18 at 18:15 Atorvastatin Calcium (Lipitor) 10 mg HS PO Last administered on 08/27/18 20:32 ; Start 08/26/18 at 21:00 Vitamin D (Vitamin D3) 1,000 unit DAILY PO Last administered on 08/28/18 08:32 ; Start 08/27/18 at 09:00 Diclofenac Sodium (Voltaren) 1 ramona QID TP Last administered on 08/27/18 20:34 ; Start 08/26/18 at 21:00 Metoprolol Tartrate (Lopressor) 50 mg BID PO Last administered on 08/28/18 08: 32; Start 08/26/18 at 21:00 Quetiapine Fumarate (SEROquel XR) 600 mg HS PO Last administered on 08/27/18 20:33; Start 08/26/18 at 21:00 Non-Formulary Medication (Albuterol Sulfate (Proair Respiclick)) 1 puff PRN Q4HRS PRN IH SHORTNESS OF BREATH; Start 08/26/18 at 21:00; Status UNV Amlodipine Besylate (Norvasc) 10 mg DAILY PO Last administered on 08/28/18 08: 32; Start 08/27/18 at 09:00 Non-Formulary Medication (Diclofenac Sodium/ Misoprostol (Diclofenac-Misoprost 75-0.2 Tb)) 1 each PRN BID PRN PO PAIN; Start 08/26/18 at 21:00; Status UNV Naproxen (Naprosyn) 500 mg BIDWMEALS PO Last administered on 08/28/18 08:32; Start 08/26/18 at 21:15 Pantoprazole Sodium (Protonix) 40 mg DAILYAC PO Last administered on 08/28/18 08:32; Start 08/27/18 at 07:30 Albuterol Sulfate (Ventolin Neb Soln) 2.5 mg PRN Q4HRS PRN NEB SHORTNESS OF BREATH Last administered on 08/27/18at 15:41; Start 08/26/18 at 21:15 Losartan Potassium (Cozaar) 100 mg DAILY PO Last administered on 08/28/18 08: 33; Start 08/27/18 at 09:00 Active Scripts Active Medrol (Methylprednisolone) 4 Mg Tab.ds.pk 1 Pkg PO UD [place] 5-325 Tablet (Acetaminophen/Hydrocodone Bitart) 1 Each Tablet 1 Tab PO Q8HRS PRN Voltaren (Diclofenac Sodium) 100 Gm Gel..gram. 1 Gm TP QID Ultram (Tramadol Hcl) 50 Mg Tablet 50 Mg PO Q6H PRN Naproxen 500 Mg Tablet.dr 500 Mg PO BID Reported Spiriva (Tiotropium [place]) 18 Mcg Cap.w.dev 2 Inh IH DAILY Quetiapine Fumarate ER (Quetiapine Fumarate) 300 Mg Tab.er.24h 2 Tab PO HS Omeprazole 40 Mg Capsule.dr 1 Cap PO HS Metoprolol Tartrate 50 Mg Tablet 1 Tab PO BID Lidocaine HCl 120 Gm Cream..g. 120 Gm TP PRN TID PRN Fluphenazine Decanoate 25 Mg/1 Ml Vial 1.5 Ml IM Q4WK Diclofenac-Misoprost 75-0.2 Tb (Diclofenac Sodium/Misoprostol) 1 Each Tab.ir.dr 1 Each PO PRN BID PRN Vitamin D3 (Cholecalciferol (Vitamin D3)) 1,000 Unit Tablet 1 Tab PO DAILY Atorvastatin Calcium 10 Mg Tablet 10 Mg PO HS Amlodipine-Valsartan 10-320 mg (Amlodipine/Valsartan) 1 Each Tablet 1 Each PO DAILY Proair Respiclick (Albuterol Sulfate) 90 Mcg Aer.pow.ba 1 Puff IH PRN Q4HRS PRN Vitals/I & O Vital Sign - Last 24 Hours 08/27/18 08/27/18 08/27/18 08/27/18 11:00 15:00 15:42 19:17 Temp 98.0 98.8 98.2 98.0 98.8 98.2 Pulse 98 98 88 Resp 18 18 18 B/P (MAP) 128/67 (87) 141/61 (87) 133/79 (97) Pulse Ox 95 98 98 97 O2 Delivery Room Air Room Air Nasal Cannula Room Air O2 Flow Rate 2.0 08/27/18 08/27/18 08/27/18 08/28/18 20:17 20:34 22:20 02:28 Temp 98.1 98.3 98.1 98.3 Pulse 88 81 79 Resp B/P (MAP) 133/79 165/80 (108) 141/66 (91) Pulse Ox 95 92 O2 Delivery Nasal Cannula Room Air Room Air O2 Flow Rate 2.0 08/28/18 08/28/18 08/28/18 08/28/18 06:48 07:37 08:32 08:32 Temp 98.4 98.4 Pulse 75 100 100 Resp 18 B/P (MAP) 143/56 (85) 143/56 143/56 Pulse Ox 94 O2 Delivery Room Air Nasal Cannula O2 Flow Rate 2.0 08/28/18 08:33 Pulse 100 B/P (MAP) 143/56 Intake and Output 08/27/18 08/27/18 08/28/18 15:00 23:00 07:00 Output Total 400 ml 200 ml Balance -400 ml -200 ml JAYSHREE BURROWS MD Aug 28, 2018 10:17
[2018-08-28 10:42] VITALS: BP 104/69
--- NOTE | 2018-08-28 11:10 | NUR ---
SS following up with discharge planning. SS received phone contact from [facility] stating that they could not meet pt's needs. SS contacted [facility] for next step and was asked to send referral packet to [facility] in [facility], ; fax [phone]. SS phoned and faxed referral. SS will await acceptance decision and will proceed accordingly.
--- NOTE | 2018-08-28 13:15 | PDOC3 ---
Discharge Summary Date of Admission: Aug 25, 2018 Date of Discharge: Aug 28, 2018 Follow-Up: 1-2 days Admitting Diagnosis comment: discharge dx Assessment/Plan IMPRESSION 1. ACCIDENTAL NARCOTIC OVERDOSE/ TRAMADOL/ HYDROCODONE due to cognitive decline 2. LEFT KNEE PAIN //Old healing fracture is seen of the proximal diaphysis of the fibula 3. ALTERED MENTATION 4. DEHYDRATION 5. COPD 6. OSTEOARTHRITIS///Left knee osteoarthritis.PAIN NOT IMPROVED Impaired fnctnl mobility * Strength * ROM * Balance * Age * Knowledge-safe techniques 7. ARF/ VASOMOTOR NEPHROPATHY 8. LEFT HIP PAIN 9. 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 11. Slurred speech, intermittent chronic for months. 12. Cognitive impairment.mod-severe 13. SEVERE GAIT INSTABILITY NOT IMPROVED PLAN TELE NEUROCHECKS Q 4 HRS IV FLUID SUPPORT FOLLOW RENAL FX GLUCOSE MGT NEUROLOGY CONSULT FALL PRECAUTIONS PT/OT PLACEMENT SNG NEEDS SNF ON DISMISSAL d/w medical logistics specialist for PACE program by phone, will approve snf bed D/W RN HIGH RISK PT AT RISK FOR SUDDEN DUE TO NARCOTIC USE// REC STOPPING ALL NARCOTICS PER MY CHART REVIEW Problem List (body system elements) * Impaired fnctnl mobility * Strength * ROM * Balance * Age * Knowledge-safe techniques * Skin Integrity * Pain Clinical Presentation * Evolving Evaluation Complexity Level * Moderate Complexity Pt/caregiver agrees with plan of care/goals * Yes Patient condition at conclusion of therapy * Pt in chair * Personal alarm on * Call light in reach * Phone in reach * PtIn no apparent distress * Pt denies further needs Communicated Patient Care With (Name, Title) * Nola RN; ELIECER Moreland Goal 1 - Bed Mobility Assistance Required * Independent Goal 2 - Transfers Assistance Required * Independent Goal 2 - Transfer Type * Sit to Stand * Stand-Step Goal 3 - Ambulation Assistance Required * Independent Goal 3 - Ambulation Distance * 100' Goal 3 - Ambulation Device * Roller Walker Treatment Plan * Therapeutic Exercise * Bed Mobility Training * Transfer training * Gait Training * Body Mechanics Training * Dynamic Balance Training Discharge Recommendations * Half-Way Unit FINAL DIAGNOSIS Problems Medical Problems: (1) Decreased level of consciousness Status: Acute (2) Left knee pain Status: Acute Brief Hospital Course Ms. Villagran is a 68 old [sex] who presented with [ narcotic overdose, accidental] CONDITION AT DISCHARGE: Comment (need pt/ot 24 hr care/ snf) Discharge Medications Current Medications Sodium Chloride 1,000 ml @ 1,000 mls/hr 1X ONCE IV Last administered on 18:44; Start 08/25/18 at 18:00; Stop 08/25/18 at 18:59; Status DC Sodium Chloride 1,000 ml @ 500 mls/hr 1X ONCE IV Last administered on 23:18; Start 08/25/18 at 23:15; Stop 08/26/18 at 01:14; Status DC Sodium Chloride 1,000 ml @ 125 mls/hr 1X ONCE IV Last administered on 23:17; Start 08/25/18 at 23:30; Stop 08/26/18 at 07:29; Status DC Magnesium Sulfate 50 ml @ 25 mls/hr 1X ONCE IV Last administered on 08/25/18 23:18; Start 08/25/18 at 23:30; Stop 08/26/18 at 01:29; Status DC Acetaminophen (Tylenol) 650 mg PRN Q6HRS PRN PO MILD PAIN Last administered on 08/27/18 14:52; Start 08/26/18 at 15:30 Loperamide HCl (Imodium) 2 mg PRN Q15MIN PRN PO DIARRHEA Last administered on 18:36; Start 08/26/18 at 18:15 Atorvastatin Calcium (Lipitor) 10 mg HS PO Last administered on 08/27/18 20:32 ; Start 08/26/18 at 21:00 Vitamin D (Vitamin D3) 1,000 unit DAILY PO Last administered on 08/28/18 08:32 ; Start 08/27/18 at 09:00 Diclofenac Sodium (Voltaren) 1 ramona QID TP Last administered on 08/28/18 09:00 ; Start 08/26/18 at 21:00 Metoprolol Tartrate (Lopressor) 50 mg BID PO Last administered on 08/28/18 08: 32; Start 08/26/18 at 21:00 Quetiapine Fumarate (SEROquel XR) 600 mg HS PO Last administered on 08/27/18 20:33; Start 08/26/18 at 21:00 Non-Formulary Medication (Albuterol Sulfate (Proair Respiclick)) 1 puff PRN Q4HRS PRN IH SHORTNESS OF BREATH; Start 08/26/18 at 21:00; Status UNV Amlodipine Besylate (Norvasc) 10 mg DAILY PO Last administered on 08/28/18at 08: 32; Start 08/27/18 at 09:00 Non-Formulary Medication (Diclofenac Sodium/ Misoprostol (Diclofenac-Misoprost 75-0.2 Tb)) 1 each PRN BID PRN PO PAIN; Start 08/26/18 at 21:00; Status UNV Naproxen (Naprosyn) 500 mg BIDWMEALS PO Last administered on 08/28/18 08:32; Start 08/26/18 at 21:15 Pantoprazole Sodium (Protonix) 40 mg DAILYAC PO Last administered on 08/28/18 08:32; Start 08/27/18 at 07:30 Albuterol Sulfate (Ventolin Neb Soln) 2.5 mg PRN Q4HRS PRN NEB SHORTNESS OF BREATH Last administered on 08/27/18at 15:41; Start 08/26/18 at 21:15 Losartan Potassium (Cozaar) 100 mg DAILY PO Last administered on 08/28/18at 08: 33; Start 08/27/18 at 09:00 Active Scripts Active Medrol (Methylprednisolone) 4 Mg Tab.ds.pk 1 Pkg PO UD [place] 5-325 Tablet (Acetaminophen/Hydrocodone Bitart) 1 Each Tablet 1 Tab PO Q8HRS PRN Voltaren (Diclofenac Sodium) 100 Gm Gel..gram. 1 Gm TP QID Ultram (Tramadol Hcl) 50 Mg Tablet 50 Mg PO Q6H PRN Naproxen 500 Mg Tablet. 500 Mg PO BID Reported Spiriva (Tiotropium [place]) 18 Mcg Cap.w.dev 2 Inh IH DAILY Quetiapine Fumarate ER (Quetiapine Fumarate) 300 Mg Tab.er.24h 2 Tab PO HS Omeprazole 40 Mg Capsule.dr 1 Cap PO HS Metoprolol Tartrate 50 Mg Tablet 1 Tab PO BID Lidocaine HCl 120 Gm Cream..g. 120 Gm TP PRN TID PRN Fluphenazine Decanoate 25 Mg/1 Ml Vial 1.5 Ml IM Q4WK Diclofenac-Misoprost 75-0.2 Tb (Diclofenac Sodium/Misoprostol) 1 Each Tab.ir.dr 1 Each PO PRN BID PRN Vitamin D3 (Cholecalciferol (Vitamin D3)) 1,000 Unit Tablet 1 Tab PO DAILY Atorvastatin Calcium 10 Mg Tablet 10 Mg PO HS Amlodipine-Valsartan 10-320 mg (Amlodipine/Valsartan) 1 Each Tablet 1 Each PO DAILY Proair Respiclick (Albuterol Sulfate) 90 Mcg Aer.pow.ba 1 Puff IH PRN Q4HRS PRN Vital Signs Vital Signs Date Time Temp Pulse Resp B/P (MAP) Pulse Ox O2 Delivery O2 Flow Rate FiO2 08/28/18 10:42 98.3 89 18 104/69 (81) 97 Room Air 98.3 08/28/18 07:37 2.0 Labs Laboratory Tests Test 08/28/18 03:00 White Blood Count 5.9 x10^3/uL (4.0-11.0) Red Blood Count 3.35 x10^6/uL (3.50-5.40) Hemoglobin 9.1 g/dL (12.0-15.5) Hematocrit 28.1 % (36.0-47.0) Mean Corpuscular Volume 84 fL (79-100) Mean Corpuscular Hemoglobin 27 pg (25-35) Mean Corpuscular Hemoglobin Concent 32 g/dL (31-37) Red Cell Distribution Width 14.7 % (11.5-14.5) Platelet Count 252 x10^3/uL (140-400) Neutrophils (%) (Auto) 46 % (31-73) Lymphocytes (%) (Auto) 37 % (24-48) Monocytes (%) (Auto) 10 % (0-9) Eosinophils (%) (Auto) 6 % (0-3) Basophils (%) (Auto) 1 % (0-3) Neutrophils # (Auto) 2.7 x10^3uL (1.8-7.7) Lymphocytes # (Auto) 2.2 x10^3/uL (1.0-4.8) Monocytes # (Auto) 0.6 x10^3/uL (0.0-1.1) Eosinophils # (Auto) 0.4 x10^3/uL (0.0-0.7) Basophils # (Auto) 0.1 x10^3/uL (0.0-0.2) Sodium Level 144 mmol/L (136-145) Potassium Level 3.6 mmol/L (3.5-5.1) Chloride Level 108 mmol/L (98-107) Carbon Dioxide Level 27 mmol/L (21-32) Anion Gap 9 (6-14) Blood Urea Nitrogen 6 mg/dL (7-20) Creatinine 0.7 mg/dL (0.6-1.0) Estimated GFR (Cockcroft-Gault) 100.4 BUN/Creatinine Ratio 9 (6-20) Glucose Level 108 mg/dL (70-99) Calcium Level 8.5 mg/dL (8.5-10.1) Total Bilirubin 0.2 mg/dL (0.2-1.0) Aspartate Amino Transf (AST/SGOT) 17 U/L (15-37) Alanine Aminotransferase (ALT/SGPT) 11 U/L (14-59) Alkaline Phosphatase 71 U/L (46-116) Total Protein 6.0 g/dL (6.4-8.2) Albumin 2.4 g/dL (3.4-5.0) Albumin/Globulin Ratio 0.7 (1.0-1.7) Laboratory Tests Test 08/28/18 03:00 White Blood Count 5.9 x10^3/uL (4.0-11.0) Red Blood Count 3.35 x10^6/uL (3.50-5.40) Hemoglobin 9.1 g/dL (12.0-15.5) Hematocrit 28.1 % (36.0-47.0) Mean Corpuscular Volume 84 fL (79-100) Mean Corpuscular Hemoglobin 27 pg (25-35) Mean Corpuscular Hemoglobin Concent 32 g/dL (31-37) Red Cell Distribution Width 14.7 % (11.5-14.5) Platelet Count 252 x10^3/uL (140-400) Neutrophils (%) (Auto) 46 % (31-73) Lymphocytes (%) (Auto) 37 % (24-48) Monocytes (%) (Auto) 10 % (0-9) Eosinophils (%) (Auto) 6 % (0-3) Basophils (%) (Auto) 1 % (0-3) Neutrophils # (Auto) 2.7 x10^3uL (1.8-7.7) Lymphocytes # (Auto) 2.2 x10^3/uL (1.0-4.8) Monocytes # (Auto) 0.6 x10^3/uL (0.0-1.1) Eosinophils # (Auto) 0.4 x10^3/uL (0.0-0.7) Basophils # (Auto) 0.1 x10^3/uL (0.0-0.2) Sodium Level 144 mmol/L (136-145) Potassium Level 3.6 mmol/L (3.5-5.1) Chloride Level 108 mmol/L (98-107) Carbon Dioxide Level 27 mmol/L (21-32) Anion Gap 9 (6-14) Blood Urea Nitrogen 6 mg/dL (7-20) Creatinine 0.7 mg/dL (0.6-1.0) Estimated GFR (Cockcroft-Gault) 100.4 BUN/Creatinine Ratio 9 (6-20) Glucose Level 108 mg/dL (70-99) Calcium Level 8.5 mg/dL (8.5-10.1) Total Bilirubin 0.2 mg/dL (0.2-1.0) Aspartate Amino Transf (AST/SGOT) 17 U/L (15-37) Alanine Aminotransferase (ALT/SGPT) 11 U/L (14-59) Alkaline Phosphatase 71 U/L (46-116) Total Protein 6.0 g/dL (6.4-8.2) Albumin 2.4 g/dL (3.4-5.0) Albumin/Globulin Ratio 0.7 (1.0-1.7) Allergies Allergies Coded Allergies Type Severity Reaction Last Updated Verified No Known Drug Allergies 10/17/15 No Disposition/Orders: Other (to snf bed) Patient Instructions d/c planning 33 min JAYSHREE BURROWS MD Aug 28, 2018 13:15
[2018-08-28] MEDS ORDERED: ACET325T9 PO (13:17)
--- NOTE | 2018-08-28 13:18 | SNU/HH DC ---
DISCHARGE ORDERS DISCHARGE INFORMATION: FINAL DIAGNOSIS Problems Medical Problems: (1) Decreased level of consciousness Status: Acute (2) Left knee pain Status: Acute CONDITION ON DISCHARGE: Guarded CODE STATUS: Code Status: Full MCC: SNF STAY <30 DAYS: Yes HOSPICE: HOSPICE: No HOSPICE EVAL & TREAT: No LTAC: ADMIT TO LTAC: No POST DISCHARGE ORDERS: ACTIVITY ORDERS: Activity as tolerated DIET AFTER DISCHARGE: Cardiac TREATMENT/EQUIPMENT ORDERS: ADAPTIVE EQUIPMENT NEEDED: Front wheeled walker Physical Therapy For: Evalulation/Treatment Occupational Therapy For: Evaluation/Treatment Speech Language Pathology For: Evaluation/Treatment DISCHARGE MEDICATIONS: Home Meds Active Scripts Acetaminophen (TYLENOL) 325 Mg Tablet, 650 MG PO PRN Q6HRS PRN for MILD PAIN for 14 Days, #60 TAB Prov:JAYSHREE BURROWS MD 08/28/18 Diclofenac Sodium (VOLTAREN) 100 Gm Gel..gram., 1 GM TP QID, #100 GM 2 Refills Prov:LIBORIO TIWARI APRN 07/09/18 Naproxen (NAPROXEN) 500 Mg Tablet., 500 MG PO BID, #20 Prov:RICARDA WEBSTER 10/17/15 Reported Medications Tiotropium [place] (SPIRIVA) 18 Mcg Cap.w.dev, 2 INH IH DAILY for copd, #1 INH 0 Refills 08/26/18 Quetiapine Fumarate (Quetiapine Fumarate ER) 300 Mg Tab.er.24h, 2 TAB PO HS for mood, TAB.SR 08/26/18 Omeprazole (OMEPRAZOLE) 40 Mg Capsule., 1 CAP PO HS for stomach acid, #30 CAP 3 Refills 08/26/18 Metoprolol Tartrate (METOPROLOL TARTRATE) 50 Mg Tablet, 1 TAB PO BID for blood pressure, #60 TAB 5 Refills 08/26/18 Lidocaine HCl (Lidocaine HCl) 120 Gm Cream..g., 120 GM TP PRN TID PRN for PAIN, EACH 08/26/18 Fluphenazine Decanoate (FLUPHENAZINE DECANOATE) 25 Mg/1 Ml Vial, 1.5 ML IM Q4WK for mood, EACH 08/26/18 Diclofenac Sodium/Misoprostol (DICLOFENAC-MISOPROST 75-0.2 TB) 1 Each Tab.ir. , 1 EACH PO PRN BID PRN for PAIN, TAB 08/26/18 Cholecalciferol (Vitamin D3) (VITAMIN D3) 1,000 Unit Tablet, 1 TAB PO DAILY for vitamin d deficiency, #30 TAB 5 Refills 08/26/18 Atorvastatin Calcium (ATORVASTATIN CALCIUM) 10 Mg Tablet, 10 MG PO HS for FOR CHOLESTEROL, #30 TAB 0 Refills 08/26/18 Amlodipine/Valsartan (Amlodipine-Valsartan 10-320 mg) 1 Each Tablet, 1 EACH PO DAILY for blood pressure, TAB 08/26/18 Albuterol Sulfate (Proair Respiclick) 90 Mcg Aer.pow.ba, 1 PUFF IH PRN Q4HRS PRN for SHORTNESS OF BREATH, INHALER 08/26/18 Discontinued Scripts Methylprednisolone (MEDROL) 4 Mg Tab.ds.pk, 1 PKG PO UD, #1 PKG Prov:LIBORIO TIWARI CUTTER TENDER 07/09/18 Hydrocodone/[place] 5-325 ([place] 5-325 TABLET) 1 Each Tablet, 1 TAB PO Q8HRS PRN for PAIN, #10 TAB Prov:LIBORIO TIWARI CUTTER TENDER 07/09/18 Tramadol Hcl (ULTRAM) 50 Mg Tablet, 50 MG PO Q6H PRN for PAIN, #20 TAB 0 Refills Prov:RICARDA WEBSTER 10/17/15 JAYSHREE BURROWS MD Aug 28, 2018 13:18
--- NOTE | 2018-08-28 13:25 | NUR ---
SS following up with discharge planning. [facility] contacted SS and reported that they have found placement for pt at there [facility], [address] [place] [address], Report# [phone]. Pt's RN instructed to provide report to Jennifer Stein at the [facility]. SS faxed discharge orders and packet to [facility], fax [phone]. [facility] to provide transportation. Pt will discharge today and go to [facility] between 1600 and 1630. Packet placed on chart. Pt's RN notified.
[2018-08-28] MEDS: ALBUTEROL SULFATE 2.5 MG/3 ML NEBU. NEB PRN (13:30)
[2018-08-28 14:42] VITALS: BP 115/57
--- NOTE | 2018-08-28 14:45 | PDOC ---
PROGRESS NOTES Assessment Assessment Metabolic encephalopathy. Narcotic use/abuse. Slurred speech, intermittent chronic for months. Cognitive impairment. Severe tricompartment osteoarthritis of left knee. Old fracture proximal diaphysis of fibula. COPD. DM. HTN. RECOMMENDATIONS/PLAN: HCT and CCT performed no acute findings. Consulted Ortho. Treat medical diseases. Avoid narcotics as possible. OT/PT. FU with PCP. FU with Ortho. HISTORY OF THE PRESENT ILLNESS: 68-y-old AA female patient with above medical and surgical diseases and chronic intermitted speech problems for months or 2 years as she thought due to loss of teeth. She has chronic pain and has been using narcotics. She had mental status changes this time and was noted pinpoint pupils on 08/25/18. neurology was called for consultation on 08/26/18 for MS changes. Past Medical History Arthritis, COPD, Diabetes-Type II, Hypertension PAST SURGERY HISTORY: Tubal ligation, RIGHT BREAST SX, CATARACTS SX ALLERGY: Unknown MEDICATIONS: Refer to [facility] FAMILY HISTORY: HTN. SOCIAL HISTORY: Lives alone. Denies smoking, drinking, and illicit drug use. She uses narcotics. REVIEW OF SYSTEMS: Constitutional: No malnutrition, weight loss, cachexia. Head: No traumatic brain or head injury. Skin: No edema, or rash. Ear: No infection. Eyes: No vision loss or color blindness. Nose: No bleeding or purulent discharges. Hearing: Hearing decrease. Neck: No injury. Breast: No history of cancer, masses,or discharges. Cardiac: HTN. Pulmonary: COPD. GI: No GI ulcer, GI bleeding. Urinary/genital: UTI. Endocrinologic: Diabetes Mellitus. Skeletomuscular: left knee pain. Neurological: see HP. Psychiatric: Narcotics use/abuse. Otherwise, not [id number] review of systems. PHYSICAL EXAMINATION: General appearance is in chronic on subacute distress. HEENT: Normocephalic and nontraumatic. Eyes, nose, ears, and throat are unremarkable. Neck is supple. No lymphadenopathy. No crepitus. Cardiovascular: S1, S2, regular rate and rhythm. Pulmonary: Clear to auscultation bilaterally. Abdomen: Bowel sounds are positive. Abdomen is soft, nontender, and nondistended. Extremities: No rash, lesions, or edema. No restriction of range of motion NEUROLOGICAL EXAMINATION: Awake. Oriented partially to time, place and person. PERRL. Pupils 2 mm. EOMI. CN: no focal findings. Muscle tone: within normal. Muscle strength: 5 UE and right LE, left knee pain with restriction of range of motion. DTR:1- 2 Plantar reflex: Neutral response bilaterally Gait: Able to walk with assistance. Sensory exam: no abnormal findings. No cerebellar signs elicited. F-T-N test fine. Objective Objective Vital Signs Date Time Temp Pulse Resp B/P (MAP) Pulse Ox O2 Delivery O2 Flow Rate FiO2 08/28/18 14:42 98.3 93 18 115/57 (76) 97 Room Air 2.0 98.3 Intake and Output 08/28/18 07:00 Output Total 600 ml Balance -600 ml Output Urine Total 600 ml # Voids 1 Vitals Signs Vitals VS - Last 72 Hours, by Label Date Time Temp Pulse Resp B/P (MAP) Pulse Ox O2 Delivery O2 Flow Rate FiO2 08/28/18 14:42 98.3 93 18 115/57 (76) 97 Room Air 2.0 98.3 08/28/18 13:29 98 Nasal Cannula 2.0 08/28/18 10:42 98.3 89 18 104/69 (81) 97 Room Air 98.3 08/28/18 08:33 100 143/56 08/28/18 08:32 100 143/56 08/28/18 08:32 100 143/56 08/28/18 07:37 Nasal Cannula 2.0 08/28/18 06:48 98.4 75 18 143/56 (85) 94 Room Air 98.4 08/28/18 02:28 98.3 79 17 141/66 (91) 92 Room Air 98.3 08/27/18 22:20 98.1 81 20 165/80 (108) 95 Room Air 98.1 08/27/18 20:34 88 133/79 08/27/18 20:17 Nasal Cannula 2.0 08/27/18 19:17 98.2 88 18 133/79 (97) 97 Room Air 98.2 08/27/18 15:42 98 Nasal Cannula 2.0 08/27/18 15:00 98.8 98 18 141/61 (87) 98 Room Air 98.8 08/27/18 11:00 98.0 98 18 128/67 (87) 95 Room Air 98.0 08/27/18 08:42 104 148/70 08/27/18 08:42 104 148/70 08/27/18 08:41 104 148/70 08/27/18 07:00 98.9 104 148/70 (96) 96 Room Air 98.9 Laboratory Laboratory Laboratory Tests Test 08/28/18 03:00 White Blood Count 5.9 x10^3/uL (4.0-11.0) Red Blood Count 3.35 x10^6/uL (3.50-5.40) Hemoglobin 9.1 g/dL (12.0-15.5) Hematocrit 28.1 % (36.0-47.0) Mean Corpuscular Volume 84 fL (79-100) Mean Corpuscular Hemoglobin 27 pg (25-35) Mean Corpuscular Hemoglobin Concent 32 g/dL (31-37) Red Cell Distribution Width 14.7 % (11.5-14.5) Platelet Count 252 x10^3/uL (140-400) Neutrophils (%) (Auto) 46 % (31-73) Lymphocytes (%) (Auto) 37 % (24-48) Monocytes (%) (Auto) 10 % (0-9) Eosinophils (%) (Auto) 6 % (0-3) Basophils (%) (Auto) 1 % (0-3) Neutrophils # (Auto) 2.7 x10^3uL (1.8-7.7) Lymphocytes # (Auto) 2.2 x10^3/uL (1.0-4.8) Monocytes # (Auto) 0.6 x10^3/uL (0.0-1.1) Eosinophils # (Auto) 0.4 x10^3/uL (0.0-0.7) Basophils # (Auto) 0.1 x10^3/uL (0.0-0.2) Sodium Level 144 mmol/L (136-145) Potassium Level 3.6 mmol/L (3.5-5.1) Chloride Level 108 mmol/L (98-107) Carbon Dioxide Level 27 mmol/L (21-32) Anion Gap 9 (6-14) Blood Urea Nitrogen 6 mg/dL (7-20) Creatinine 0.7 mg/dL (0.6-1.0) Estimated GFR (Cockcroft-Gault) 100.4 BUN/Creatinine Ratio 9 (6-20) Glucose Level 108 mg/dL (70-99) Calcium Level 8.5 mg/dL (8.5-10.1) Total Bilirubin 0.2 mg/dL (0.2-1.0) Aspartate Amino Transf (AST/SGOT) 17 U/L (15-37) Alanine Aminotransferase (ALT/SGPT) 11 U/L (14-59) Alkaline Phosphatase 71 U/L (46-116) Total Protein 6.0 g/dL (6.4-8.2) Albumin 2.4 g/dL (3.4-5.0) Albumin/Globulin Ratio 0.7 (1.0-1.7) Comment Review of Relevant I have reviewed the following items della (where applicable) has been applied. JOSTIN BRYANT MD Aug 28, 2018 14:44
== END 2018-08-28 17:11 | DRG 917 ==
LOC: ER 17:23 → 2 NORTH 18:30
PROVIDERS: ADMIT Family Medicine; ATTEND Family Medicine
DX: T40.601A Poisoning by unspecified narcotics, accidental (unintentional), initial encounter (principal); G93.41 Metabolic encephalopathy; N17.0 Acute kidney failure with tubular necrosis; T40.2X1A Poisoning by other opioids, accidental (unintentional), initial encounter; E11.9 Type 2 diabetes mellitus without complications; E86.0 Dehydration; G89.29 Other chronic pain; I10 Essential (primary) hypertension; J44.9 Chronic obstructive pulmonary disease, unspecified; W18.39XA Other fall on same level, initial encounter; M17.12 Unilateral primary osteoarthritis, left knee; Z82.49 Family history of ischemic heart disease and other diseases of the circulatory system; Z98.51 Tubal ligation status; Y93.89 Activity, other specified; Y92.89 Other specified places as the place of occurrence of the external cause; Y99.8 Other external cause status
CPT/HCPCS: 36415; 70450; 71045; 72125; 73502; 73562; 73590; 80048; 80053; 80307; 81001; 82553; 82962; 83605; 83735; 84484; 85025; 93005; 94640; G0480; J3475; J7030; J7613; 97530; 97535; 99285-25

== ENCOUNTER 2020-08-27 23:40 | Emergency (ER) | payer MEDICARE, MEDICAID ==
[~2020-08-27] VITALS: Ht 160 cm; Wt 59.1 kg
[~2020-08-27 23:40] MED LIST changes: +ACET325T9 PO; +AMLO-310 PO; +ATOR10TA60 PO; +CHOL10003 PO; -DICL100G18 TP; +DICL100G54 TP; +DICL1TAB PO; +FLUP25VI2 IM; +LIDO120C7 TP; +METO50TA6 PO; +OMEP40CA45 PO; +PROAIR RESPICL90 MCG IH; +QUET300T67 PO; +TIOT18CA IH
[2020-08-28 00:59] LABS: BASO % 1 % (0-3); EOS % 1 % (0-3); HEMATOCRIT 34.7 % (36.0-47.0); HEMOGLOBIN 11.5 g/dL (12.0-15.5); LYMPH # 1.2 x10^3/uL (1.0-4.8); LYMPH % 32 % (24-48); MEAN CORPUSCULAR HEMOGLOBIN 29 pg (25-35); MEAN CORPUSCULAR HGB CONC 33 g/dL (31-37); MEAN CORPUSCULAR VOLUME 88 fL (79-100); MONO # 0.7 x10^3/uL (0.0-1.1); MONO % 19 % (0-9); NEUT # 1.8 x10^3/uL (1.8-7.7); NEUT % 47 % (31-73); PLATELET COUNT 207 x10^3/uL (140-400); RED BLOOD COUNT 3.95 x10^6/uL (3.50-5.40); RED CELL DISTRIBUTION WIDTH 14.3 % (11.5-14.5); WHITE BLOOD COUNT 3.8 x10^3/uL (4.0-11.0)
[2020-08-28] MEDS ORDERED: MORPHINE SULFATE 2 MG/ML VIAL. IV ONE (01:00)
[2020-08-28 01:22] LABS: ETHANOL < 10 mg/dL (0-10); SALIC < 2.8 mg/dL (2.8-20.0)
[2020-08-28 01:26] LABS: ALBUMIN 3.4 g/dL (3.4-5.0); ALBUMIN/GLOBULIN RATIO 0.8 (1.0-1.7); CALCIUM 9.2 mg/dL (8.5-10.1); CREATININE 0.9 mg/dL (0.6-1.0); GFR 74.7; TOTAL BILIRUBIN 0.3 mg/dL (0.2-1.0); TOTAL PROTEIN 7.7 g/dL (6.4-8.2)
[2020-08-28 01:34] LABS: POTASSIUM 2.9 mmol/L (3.5-5.1)
[2020-08-28 01:49] LABS: BILIRUBIN,URINE NEGATIVE (NEG); CLARITY,URINE CLEAR; COLOR,URINE YELLOW; NITRITE,URINE NEGATIVE (NEG); PROTEIN,URINE NEGATIVE (NEG-TRACE); UROBILINOGEN,URINE 0.2 mg/dL (0.2 mg/dL)
[2020-08-28 01:56] LABS: BARBITURATES NEG (NEG); BENZODIAZEPINES NEG (NEG); CANNABINOIDS NEG (NEG); COCAINE NEG (NEG); METHADONE NEG (NEG); OPIATES POS (NEG); PHENCYCLIDINE NEG (NEG)
[2020-08-28 01:58] LABS: AMPHETAMINE/METHAMPHETAMINE NEG (NEG)
[2020-08-28] MEDS ORDERED: POTASSIUM BICARB 20 MEQ EFFERVESCENT TABLET. PO ONE (02:00)
[2020-08-28 03:11] LABS: BACTERIA,URINE FEW /HPF (0-FEW); RBC,URINE 0 /HPF (0-2); WBC,URINE OCC /HPF (0-4)
--- NOTE | 2020-08-28 04:06 | PHYS DOC ---
Past Medical History Past Medical History: Arthritis, COPD, Diabetes-Type II, GERD, High Cholesterol, Hypertension Past Surgical History: Tubal ligation Additional Past Surgical Histo: RIGHT BREAST SX, CATARACTS SX Smoking Status: Never Smoker Alcohol Use: None Drug Use: Opiates General Adult EDM: Chief Complaint: LOWER EXT PAIN HPI: HPI: Patient is a 70 old female with past medical history of schizophrenia presents with a chief complaint of leg and inner body pain. Patient states she had a Covid shot this afternoon. Patient states when she took her medications around 2100 hrs. she started to have discomfort in her legs and in her "interbody" Patient denies any homicidal or suicidal ideations. Patient states she lives alone in her apartment. Patient has a home nurse and family members that check on her frequently. Review of Systems: Review of Systems: []Constitutional: Denies fever or chills. [] Eyes: Denies change in visual acuity. [] HENT: Denies nasal congestion or sore throat. [] Respiratory: Denies cough or shortness of breath. [] Cardiovascular: Denies chest pain or edema. [] GI: Denies abdominal pain, nausea, vomiting, bloody stools or diarrhea. [] : Denies dysuria. [] Musculoskeletal: Denies back pain or joint pain. [Positive extremity pain] Integument: Denies rash. [] Neurologic: Denies headache, focal weakness or sensory changes. [] Endocrine: Denies polyuria or polydipsia. [] Lymphatic: Denies swollen glands. [] Psychiatric: Denies depression or anxiety. [Patient denies any homicidal or suicidal ideation] Heart Score: C/O Chest Pain: No Risk Factors: Risk Factors: DM, Current or recent (<one month) smoker, HTN, HLP, family history of CAD, obesity. Risk Scores: Score 0 - 3: 2.5% MACE over next 6 weeks - Discharge Home Score 4 - 6: 20.3% MACE over next 6 weeks - Admit for Clinical Observation Score 7 - 10: 72.7% MACE over next 6 weeks - Early Invasive Strategies Current Medications: Current Medications Medications (Trade) Dose Ordered Sig/Yuridia Start Time Stop Time Status Last Admin Dose Admin Morphine Sulfate (Morphine Sulfate) 2 mg 1X ONCE 08/28/20 01:00 08/28/20 01:01 DC 08/28/20 00:55 2 MG Potassium Bicarbonate (Potassium Effervescent Tablet) 40 meq 1X ONCE 08/28/20 02:00 08/28/20 02:01 DC 08/28/20 02:14 40 MEQ Allergies: Allergies: Allergies Coded Allergies Type Severity Reaction Last Updated Verified No Known Drug Allergies 10/17/15 No Physical Exam: PE: Constitutional: Well developed, well nourished, no acute distress, non-toxic appearance. [] HENT: Normocephalic, atraumatic, bilateral external ears normal, oropharynx moist, no oral exudates, nose normal. [] Eyes: PERRLA, EOMI, conjunctiva normal, no discharge. [] Neck: Normal range of motion, no tenderness, supple, no stridor. [] Cardiovascular:Heart rate regular rhythm, no murmur [] Lungs & Thorax: Bilateral breath sounds clear to auscultation [] Abdomen: Bowel sounds normal, soft, no tenderness, no masses, no pulsatile masses. [] Skin: Warm, dry, no erythema, no rash. [] Back: No tenderness, no CVA tenderness. [] Extremities: No tenderness, no cyanosis, no clubbing, ROM intact, no edema. [] Neurologic: Alert and oriented X 3, normal motor function, normal sensory function, no focal deficits noted. [] Psychologic: No HI no SI A/O x4 Current Patient Data: Labs: Laboratory Tests Test 08/28/20 00:50 08/28/20 01:40 White Blood Count 3.8 x10^3/uL (4.0-11.0) L Red Blood Count 3.95 x10^6/uL (3.50-5.40) Hemoglobin 11.5 g/dL (12.0-15.5) L Hematocrit 34.7 % (36.0-47.0) L Mean Corpuscular Volume 88 fL (79-100) Mean Corpuscular Hemoglobin 29 pg (25-35) Mean Corpuscular Hemoglobin Concent 33 g/dL (31-37) Red Cell Distribution Width 14.3 % (11.5-14.5) Platelet Count 207 x10^3/uL (140-400) Neutrophils (%) (Auto) 47 % (31-73) Lymphocytes (%) (Auto) 32 % (24-48) Monocytes (%) (Auto) 19 % (0-9) H Eosinophils (%) (Auto) 1 % (0-3) Basophils (%) (Auto) 1 % (0-3) Neutrophils # (Auto) 1.8 x10^3/uL (1.8-7.7) Lymphocytes # (Auto) 1.2 x10^3/uL (1.0-4.8) Monocytes # (Auto) 0.7 x10^3/uL (0.0-1.1) Eosinophils # (Auto) 0.0 x10^3/uL (0.0-0.7) Basophils # (Auto) 0.0 x10^3/uL (0.0-0.2) Platelet Estimate Pending Sodium Level 140 mmol/L (136-145) Potassium Level 2.9 mmol/L (3.5-5.1) *L Chloride Level 103 mmol/L (98-107) Carbon Dioxide Level 25 mmol/L (21-32) Anion Gap 12 (6-14) Blood Urea Nitrogen 7 mg/dL (7-20) Creatinine 0.9 mg/dL (0.6-1.0) Estimated GFR (Cockcroft-Gault) 74.7 BUN/Creatinine Ratio 8 (6-20) Glucose Level 257 mg/dL (70-99) H Calcium Level 9.2 mg/dL (8.5-10.1) Total Bilirubin 0.3 mg/dL (0.2-1.0) Aspartate Amino Transferase (AST) 16 U/L (15-37) Alanine Aminotransferase (ALT) 17 U/L (14-59) Alkaline Phosphatase 78 U/L (46-116) Total Protein 7.7 g/dL (6.4-8.2) Albumin 3.4 g/dL (3.4-5.0) Albumin/Globulin Ratio 0.8 (1.0-1.7) L Salicylates Level < 2.8 mg/dL (2.8-20.0) L Salicylate Last Dose Date Salicylate Last Dose Time Ethyl Alcohol Level < 10 mg/dL (0-10) Urine Collection Type Unknown Urine Color Yellow Urine Clarity Clear Urine pH 7.0 (<5.0-8.0) Urine Specific [place] <=1.005 (1.000-1.030) Urine Protein Negative mg/dL (NEG-TRACE) Urine Glucose (UA) 100 mg/dL (NEG) Urine Ketones (Stick) Negative mg/dL (NEG) Urine Blood Negative (NEG) Urine Nitrite Negative (NEG) Urine Bilirubin Negative (NEG) Urine Urobilinogen Dipstick 0.2 mg/dL (0.2 mg/dL) Urine Leukocyte Esterase Negative (NEG) Urine RBC 0 /HPF (0-2) Urine WBC Occ /HPF (0-4) Urine Squamous Epithelial Cells Mod /LPF Urine Bacteria Few /HPF (0-FEW) Urine Mucus Slight /LPF Urine Opiates Screen Pos (NEG) Urine Methadone Screen Neg (NEG) Urine Barbiturates Neg (NEG) Urine Phencyclidine Screen Neg (NEG) Urine Amphetamine/Methamphetamine Neg (NEG) Urine Benzodiazepines Screen Neg (NEG) Urine Cocaine Screen Neg (NEG) Urine Cannabinoids Screen Neg (NEG) Urine Ethyl Alcohol Neg (NEG) Laboratory Tests 08/28/20 00:50 Laboratory Tests 08/28/20 00:50 Vital Signs: Vital Signs Date Time Temp Pulse Resp B/P (MAP) Pulse Ox O2 Delivery O2 Flow Rate FiO2 08/28/20 03:21 80 18 114/71 (85) 98 Room Air 08/27/20 23:56 98.5 98.5 EKG: EKG: [] Radiology/Procedures: Radiology/Procedures: [] Course & Med Decision Making: Course & Med Decision Making Pertinent Labs and Imaging studies reviewed. (See chart for details) [] Patient was evaluated for chief complaint. PAT team was called to assess the patient. Patient with history of schizophrenia. Per assessment patient is at baseline. Patient is ANO x4. Patient's pain treated with morphine. Patient will be discharged home with instructions to follow-up with her primary care physician. Osman Disclaimer: Osman Disclaimer: This electronic medical record was generated, in whole or in part, using a voice recognition dictation system. Departure Departure Impression: Primary Impression: Schizophrenia Additional Impression: Extremity pain Disposition: 01 DC HOME SELF CARE/HOMELESS Condition: STABLE Referrals: UNKNOWN PCP NAME (PCP) Patient Instructions: ADRIAN Tomas DO Aug 28, 2020 04:06
[2020-08-28 04:50] VITALS: BP 110/79
[2020-08-28 04:57] LABS: % EOS 1 % (0-5); % LYMPHS 43 % (24-48); % MONOS 13 % (0-10); % SEGS 43 % (35-66); PLT ESTIMATE ADEQUATE (ADEQUATE)
== END 2020-08-28 07:17 | disposition home or self-care (01) ==
LOC: ER 23:40
DX: F20.9 Schizophrenia, unspecified (principal); M79.606 Pain in leg, unspecified; M19.90 Unspecified osteoarthritis, unspecified site; J44.9 Chronic obstructive pulmonary disease, unspecified; E11.9 Type 2 diabetes mellitus without complications; K21.9 Gastro-esophageal reflux disease without esophagitis; E78.00 Pure hypercholesterolemia, unspecified; I10 Essential (primary) hypertension; Z98.51 Tubal ligation status; Z98.890 Other specified postprocedural states
CPT/HCPCS: 36415; 80053; 80307; 80329; 81001; 85007; 85025; 96374; 99285; G0480; J2270